=== PATIENT | male | born 1940 | race Caucasian/White ===

== ENCOUNTER 2018-01-25 05:48 | Day surgery (SDC) | payer OTHER, MEDICARE ==
[~2018-01-25] VITALS: Ht 182.9 cm; Wt 115.2 kg
[~2018-01-25 05:48] MED LIST: ALBU90OI; ALBU90OI61 INH; ASPI81CH; ASPI81CH PO; ATOR40TA PO; Amiodarone HCl200 MG PO; BUDE200IP; BUDE6HFA INH; CARV3.125 PO; CARV6.25 PO; CHOL10002 PO; CITA20 PO; CLOP75 PO; CYCL10 PO; DRON400T; FURO20 PO; FURO80 PO; IBUP800 PO; LEVSOD50 PO; LIDO700A20 TOP; LISI20 PO; LORA1 PO; MOME220I INH; NITR.6SL PO; OXYC5 PO; Oxycodone-Apap1 EAC3 PO; PANT40 PO; STIOLTO RESPIMAT4 GM INH; TRAZ150T57 PO; TRAZ50 PO; WARF2.5 PO; WARF5 PO
== END 2018-01-25 22:39 | disposition home or self-care (01) ==
LOC: ORSCMMR 05:48
PROVIDERS: Surgery
PROC: 0DBL8ZX Excision of Transverse Colon, Via Natural or Artificial Opening Endoscopic, Diagnostic (ICD-10-PCS; principal; 2018-01-25 07:30)
PROC: 0DBH8ZX Excision of Cecum, Via Natural or Artificial Opening Endoscopic, Diagnostic (ICD-10-PCS; principal; 2018-01-25 07:30)
DX: D64.9 Anemia, unspecified (principal); D12.0 Benign neoplasm of cecum; D12.3 Benign neoplasm of transverse colon; K64.8 Other hemorrhoids; K57.30 Diverticulosis of large intestine without perforation or abscess without bleeding; Z86.010 Personal history of colon polyps; I48.91 Unspecified atrial fibrillation; Z95.0 Presence of cardiac pacemaker; E78.00 Pure hypercholesterolemia, unspecified; I10 Essential (primary) hypertension; E03.9 Hypothyroidism, unspecified; J44.9 Chronic obstructive pulmonary disease, unspecified; G47.33 Obstructive sleep apnea (adult) (pediatric); Z79.01 Long term (current) use of anticoagulants; Z79.899 Other long term (current) drug therapy
CPT/HCPCS: 88305; J7120

== ENCOUNTER 2019-03-27 12:52 | Day surgery (SDC) | payer MEDICARE ==
[~2019-03-27] VITALS: Ht 177.8 cm; Wt 111.6 kg
== END 2019-03-27 15:39 | disposition home or self-care (01) ==
LOC: ORSCSDS 12:52
PROVIDERS: Surgery
PROC: 0DBK8ZX Excision of Ascending Colon, Via Natural or Artificial Opening Endoscopic, Diagnostic (ICD-10-PCS; principal; 2019-03-27 14:30)
DX: Z12.11 Encounter for screening for malignant neoplasm of colon (principal); D12.2 Benign neoplasm of ascending colon; Z86.010 Personal history of colon polyps; I48.91 Unspecified atrial fibrillation; I10 Essential (primary) hypertension; G47.33 Obstructive sleep apnea (adult) (pediatric); E66.9 Obesity, unspecified; Z87.891 Personal history of nicotine dependence; Z68.35 Body mass index [BMI] 35.0-35.9, adult; Z79.899 Other long term (current) drug therapy
CPT/HCPCS: 88305; J2704; J7120

== ENCOUNTER 2019-08-24 11:51 | Inpatient (IN) | payer MEDICARE ==
[~2019-08-24] VITALS: Ht 180.3 cm; Wt 104.1 kg
[~2019-08-24 11:51] MED LIST changes: -CARV3.125 PO; +Coreg12.5 MG PO; +Desyrel150 MG PO; +FURO40 PO; -FURO80 PO; +LEVSOD25 PO; -LEVSOD50 PO; -TRAZ150T57 PO; -WARF2.5 PO
[2019-08-24 13:00] LABS: BASOPHILS ABSOLUTE AUTO 0.03 K/mm3 (0.00-0.23); BASOPHILS PERCENT AUTO 1 % (0-2); EOSINOPHILS ABSOLUTE AUTO 0.06 K/mm3 (0.00-0.68); EOSINOPHILS PERCENT AUTO 1 % (0-6); Hematocrit 35.8 % (37.0-53.0); Hemoglobin 11.2 g/dL (13.5-17.5); IMMATURE GRAN ABSOLUTE AUTO 0.02 K/mm3 (0.00-0.10); IMMATURE GRAN PERCENT AUTO 0 % (0-1); LYMPHOCYTES ABSOLUTE AUTO 0.63 K/mm3 (0.84-5.20); LYMPHOCYTES PERCENT AUTO 12 % (21-46); MONOCYTES ABSOLUTE AUTO 0.64 K/mm3 (0.16-1.47); MONOCYTES PERCENT AUTO 12 % (4-13); Mean Corpuscular HGB 31.3 pg (26.0-34.0); Mean Corpuscular HGB Conc 31.3 g/dL (31.5-36.5); Mean Corpuscular Volume 100 fL (80-100); Mean Platelet Volume 9.5 fL (9.1-12.4); NEUTROPHILS PERCENT AUTO 74 % (41-73); Platelet Count 156 K/mm3 (150-400); RDW Coefficient Variation 12.7 % (11.7-14.2); RDW Standard Deviation 46.5 fL (35.1-46.3); Red Blood Cell Count 3.58 M/mm3 (4.30-5.90); White Blood Cell Count 5.28 K/mm3 (4.00-11.30)
[2019-08-24 13:12] LABS: Albumin, Blood 3.8 g/dL (3.4-5.0); Albumin/Globulin Ratio 1.3 (0.8-1.8); Bilirubin, Total 0.6 mg/dL (0.1-1.0); Bun/Creatinine Ratio 26.4 (12.0-20.0); Calcium, Blood 8.9 mg/dL (8.5-10.1); Creatinine, Blood 1.63 mg/dL (0.60-1.20); Globulin, Blood 2.9 g/dL (2.2-4.0); Potassium, Blood 4.5 mmol/L (3.5-5.5); Total Protein, Blood 6.7 g/dL (6.4-8.2)
[2019-08-24] MEDS ORDERED: Vitamin D2000 UNIT PO (15:23)
[2019-08-24] MEDS ORDERED: THERA1 EACH PO (15:24)
[2019-08-24] MEDS ORDERED: CLOP75 PO (15:25)
[2019-08-24] MEDS ORDERED: LORA1 PO (15:26)
[2019-08-24] MEDS ORDERED: CYCL10 PO (15:26)
[2019-08-24] MEDS ORDERED: Simvastatin40 MG PO (15:27)
[2019-08-24] MEDS ORDERED: GABA100 PO (15:33)
--- NOTE | 2019-08-24 18:08 | NUR ---
PT ARRIVED TO UNIT VIA GURNEY. EXTREMELY PAINFUL ON TRANSFER AND WHEN LAYING FLAT IN BED. RATES PAIN AT 8/10 UNRELIEVED BY FENTANYL GIVEN BEFORE TRANSFER. ICE GIVEN TO PATIENT. PATIENT RESTING IN BED IN LOW FOWLERS POSITION.
--- NOTE | 2019-08-24 18:34 | NUR ---
MEDICATED PER EMAR WITH DILAUDID. PATIENT STATES RELIEF. PATIENT IS CONTINENT OF BLADDER AND USED URINAL. PATIENT HAS CALL LIGHT IN REACH AND IS ABLE TO USE IT APPROPRIATLY.
--- NOTE | 2019-08-24 19:03 | NUR ---
HEPARIN DRIP STARTED PER EMAR, BOLUS GIVEN PER EMAR.
--- NOTE | 2019-08-24 19:29 | NUR ---
DR. KIRKPATRICK CALLED FOR PAIN MEDIATION ORDERS, DIET AND DALE ORDER. WILL PLACE DALE IF NEEDED, AT THIS POINT PT USING URINAL WELL. PT REPORTED FENTANYL DID NOT RELIEVE PAIN, CHANGED TO DILAUDID PER DR. KIRKPATRICK.
--- NOTE | 2019-08-24 22:30 | NUR ---
DR. ANDERSON IN TO SEE PATIENT
--- NOTE | 2019-08-24 22:30 | NUR ---
SPOKE WITH HOSPITALIST REGARDING WHEN TO DISCONTINUE HEPARIN GTT FOR PLANNED SURGERY TOMORROW MORNING. WAITING FOR ORDERS TO BE PUT IN FOR EXACT TIME.
--- NOTE | 2019-08-25 00:25 | NUR ---
CALL PLACED TO DR CHUNG REGARDING WHEN TO DISCONTINUE HEPARIN GTT FOR PLANNED SURGERY. ORDER TO DISCONTINUE AT THIS TIME.
[2019-08-25 02:26] LABS: Albumin, Blood 3.6 g/dL (3.4-5.0); Albumin/Globulin Ratio 1.2 (0.8-1.8); Bilirubin, Total 0.8 mg/dL (0.1-1.0); Calcium, Blood 8.9 mg/dL (8.5-10.1); Creatinine, Blood 1.71 mg/dL (0.60-1.20); Globulin, Blood 3.1 g/dL (2.2-4.0); Magnesium, Blood 1.8 mg/dL (1.6-2.4); Potassium, Blood 4.3 mmol/L (3.5-5.5); Total Protein, Blood 6.7 g/dL (6.4-8.2)
--- NOTE | 2019-08-25 09:29 | NUR ---
DR KIRKPATRICK HERE TO SEE PT. DISCUSSED MEDS/VS AND THAT PT REPORTS USUALLY HAVING LOW HR PER PT. DR KIRKPATRICK REPORTS TO GIVE COREG AND LISINOPRIL ORDERED.
--- NOTE | 2019-08-25 09:40 | NUR ---
MEDS GIVEN WITH SIP OF WATER PER DR KIRKPATRICK.
--- NOTE | 2019-08-25 11:58 | NUR ---
PT TO HAVE PROCEDURE IN OWN BED WITH OTHER STAFF. FAMILY PRESENT.
--- NOTE | 2019-08-25 12:50 | NUR ---
DAY SURGERY RN | DR. ARREAGA SAW PATIENT PATIENT HERE IN PACU FOR PRE-OP. DR. ARREAGA WROTE ORDERS FOR PATIENT. IV PATENT. O2 AT 4 L NC PER PATIENT BASELINE. PATIENT IS IN 8/10 PAIN, "MOSTLY IN BACK". VSS. A/O. AWAITING ANESTHESIA CONSULATION.
--- NOTE | 2019-08-25 15:41 | NUR ---
"DAY SURGERY RN | TO OR AT 1343 DR. GUTIERRES SAW PATIENT. NO ISSUES."
--- NOTE | 2019-08-25 17:00 | NUR ---
PT TO ROOM FROM SURGERY. AO, FAMILY AT BEDSIDE. VSS. REPORTS NO PAIN AT THIS TIME.
--- NOTE | 2019-08-25 17:34 | NUR ---
HEPARIN POST-SURGERY NOTE DR KIRKPATRICK REPORTED EARLIER TO CLARIFY WITH DR ARREAGA WHEN TO START HEPARIN POST-SURGERY. DR ARREAGA REPORTED MAY START HEPARIN TOMMORROW AT NOON. DR KIRKPATRICK NOTIFIED.
--- NOTE | 2019-08-25 19:05 | NUR ---
SHIFT SUMMARY PT HAD PROCEDURE TODAY. FAMILY BEEN IN AND OUT OF RM. PT BEEN ASSISTED WITH ADL'S. PT MED PER ORDERS W/O DIFFICULTY. REPORTS PAIN MUCH BETTER. DRESSINGS CDI. VSS. PT REPORTS LOW HR AT BASELINE. PT HAS BEEN CONFUSED AT TIMES SINCE SURGERY. BED ALARM IN PLACE. PT TOLERATING FLUIDS AND VOIDED POST-SURGERY.
[2019-08-26 05:46] LABS: Bun/Creatinine Ratio 30.1 (12.0-20.0); Calcium, Blood 8.7 mg/dL (8.5-10.1); Creatinine, Blood 1.66 mg/dL (0.60-1.20); Potassium, Blood 4.3 mmol/L (3.5-5.5)
--- NOTE | 2019-08-26 05:46 | NUR ---
SHIFT SUMMARY: PT POD #1 FOR LEFT HIP REPAIR. SURGICAL DRESSINGS CDI. NEW IV PLACED TO LEFT ARM PT PULLED PREVIOUS ONE. PT IMPULSIVE AND ATTEMPTING TO GET OUT OF BED AT TIMES. NEW MEPILEX PLACED ON SKIN TEAR ON RIGHT FOREARM. BED ALARM ON. VOIDING IN URINAL. OUT OF BED TO CHAIR AND BEDSIDE COMMODE WITH 2 MAX ASSIST AND FWW+GB.
[2019-08-26 05:53] LABS: BASOPHILS ABSOLUTE AUTO 0.01 K/mm3 (0.00-0.23); BASOPHILS PERCENT AUTO 0 % (0-2); EOSINOPHILS PERCENT AUTO 0 % (0-6); Hematocrit 28.7 % (37.0-53.0); Hemoglobin 9.1 g/dL (13.5-17.5); IMMATURE GRAN ABSOLUTE AUTO 0.05 K/mm3 (0.00-0.10); IMMATURE GRAN PERCENT AUTO 1 % (0-1); LYMPHOCYTES PERCENT AUTO 3 % (21-46); MONOCYTES ABSOLUTE AUTO 0.81 K/mm3 (0.16-1.47); MONOCYTES PERCENT AUTO 9 % (4-13); Mean Corpuscular HGB 31.1 pg (26.0-34.0); Mean Corpuscular HGB Conc 31.7 g/dL (31.5-36.5); Mean Corpuscular Volume 98 fL (80-100); Mean Platelet Volume 9.9 fL (9.1-12.4); NEUTROPHILS ABSOLUTE AUTO 7.96 K/mm3 (1.96-9.15); NEUTROPHILS PERCENT AUTO 87 % (41-73); Platelet Count 149 K/mm3 (150-400); RDW Coefficient Variation 12.8 % (11.7-14.2); Red Blood Cell Count 2.93 M/mm3 (4.30-5.90); White Blood Cell Count 9.13 K/mm3 (4.00-11.30)
--- NOTE | 2019-08-26 08:51 | NUR ---
DR KIRKPATRICK HERE RECENTLY TO SEE PT.
--- NOTE | 2019-08-26 08:52 | NUR ---
DR KIRKPATRICK REPORTED STARTED COUMADIN THIS EVENING, REPORTED DOES NOT NEED HEPARIN STARTED AT NOON.
--- NOTE | 2019-08-26 11:20 | NUR ---
DR ARREAGA BEEN TO SEE PT, REPORTS TO LEAVE CURRENT DRESSING IN PLACE AT THIS TIME.
--- NOTE | 2019-08-26 13:10 | NUR ---
PHARMACY CALLED RECENTLY TO CLARIFY HEPARIN, REPORTED THAT DR KIRKPATRICK REPORTED EARLIER TO NOT START AT NOON. PT SCHEDULED TO GET COUMADIN THIS EVENING.
--- NOTE | 2019-08-26 16:39 | NUR ---
SHIFT SUMMARY FAMILY HAS BEEN IN TO SEE PT TODAY. PAIN MANAGED WITH PAIN MEDS PER ORDER. PT HAS BEEN UP TO CHAIR TODAY AND IS TOLERATING FOOD AND FLUIDS. PT FORGETS LIMITATIONS AT TIMES. BED/TAB ALARM HAS BEEN USED TODAY. PT VOIDING. SURGICAL DRESSINGS CDI. NEEDS 2X ASSIST WITH WALKER FOR TRANSFER. BEEN ASSISTED WITH ADLS PRN.
[2019-08-27 05:43] LABS: International Normalized Ratio 0.95; Prothrombin Time Results 10.1 Sec (9.7-11.5)
--- NOTE | 2019-08-27 06:25 | NUR ---
SHIFT SUMMARY: PT A&O X4. IMPULSIVE AT TIMES. BED ALARM AND TAB ALARM ON FOR SAFETY. PAIN MANAGED WITH 10MG OXY PER EMAR. GIVEN IV PAIN MEDICATION ONCE. PT OUT OF BED TO BEDSIDE COMMODE WITH 2 ASSIST W/FWW+GB. PT'S MOBILITY APPEARS TO BE SLIGHTLY IMPROVING. ICE PACK PLACED TO LEFT HIP. PT APPEARS TO BE ANXIOUS HE HAS NOT HAD A BM. PT BEEN GETTING DAILY COLACE. WILL GIVE SENNAKOT PER EMAR. VOIDING WELL IN URINAL.
--- NOTE | 2019-08-27 14:23 | NUR ---
PAIN DR. KIRKPATRICK NOTIFIED THAT PT HAS STILL BEEN REQUIRING IV PAIN MEDICATION. CONTINUE WITH PLAN FOR DISCHARGE TO SNF. SCRIPTS FOR PAIN MEDICATION IN CHART.
[2019-08-27] MEDS ORDERED: ACET500 PO (15:02)
[2019-08-27] MEDS ORDERED: WARF7.5 PO (15:02)
[2019-08-27] MEDS ORDERED: DOCU100 PO (15:03)
[2019-08-27] MEDS ORDERED: Oxycodone HCl20 M1 PO (15:04)
--- NOTE | 2019-08-27 15:22 | NUR ---
REPORT GIVEN TO JUSTIN AT [facility]. PATIENT LEFT VIA WHEELCHAIR WITH TRANSPORT. BELONGINGS SENT WITH PATIENT. PRESCRIPTIONS IN DISCHARGE PACKET WITH PATIENT. PATIENT HAD BOWEL MOVEMENT TODAY AND HAS BEEN CONTINENT OF BLADDER. UP TO THE CHAIR WITH FWW AND GB THROUGHOUT SHIFT. COMPLAINTS OF 8/10 PAIN. NEEDED IV PAIN MEDICATIONS FOR BREAKTHROUGH PAIN. DRESSING SITES WERE CDI.
== END 2019-08-27 15:30 | DRG 481 ==
LOC: ER 11:51 → SURS 15:45
PROVIDERS: Emergency Medicine; ADMIT Hospitalist
PROC: 0QH706Z Insertion of Intramedullary Internal Fixation Device into Left Upper Femur, Open Approach (ICD-10-PCS; principal; 2019-08-24)
DX: S72.142A Displaced intertrochanteric fracture of left femur, initial encounter for closed fracture (principal); I50.22 Chronic systolic (congestive) heart failure; I13.0 Hypertensive heart and chronic kidney disease with heart failure and stage 1 through stage 4 chronic kidney disease, or unspecified chronic kidney disease; W19.XXXA Unspecified fall, initial encounter; I48.91 Unspecified atrial fibrillation; J44.9 Chronic obstructive pulmonary disease, unspecified; D64.9 Anemia, unspecified; N18.3 Chronic kidney disease, stage 3 (moderate); I25.10 Atherosclerotic heart disease of native coronary artery without angina pectoris; K21.9 Gastro-esophageal reflux disease without esophagitis; G47.33 Obstructive sleep apnea (adult) (pediatric); E66.9 Obesity, unspecified; Z68.32 Body mass index [BMI] 32.0-32.9, adult; Z95.1 Presence of aortocoronary bypass graft; Z79.01 Long term (current) use of anticoagulants; Z79.899 Other long term (current) drug therapy; Z95.5 Presence of coronary angioplasty implant and graft; Z87.891 Personal history of nicotine dependence; I25.2 Old myocardial infarction; Z95.0 Presence of cardiac pacemaker
CPT/HCPCS: 36415; 71045; 73502; 73552; 73700; 80048; 80053; 83735; 83880; 84484; 85025; 85610; 85730; 86850; 86900; 86901; 93005; 93010; 94762; 96361; 96374; 96375; 96376; 97110; 97162; 97165; 97530; 99285-25; A9270; C1713; C1769; J0171; J0690; J0735; J1100; J1170; J1644; J1885; J1940; J2060; J2370; J2405; J2704; J2795; J3010; J7030; J7120

== ENCOUNTER 2019-08-30 08:00 | Inpatient (IN) | payer MEDICARE ==
[~2019-08-30] VITALS: Ht 188 cm; Wt 110.3 kg
[~2019-08-30 08:00] MED LIST changes: +ACET500 PO; +DOCU100 PO; +GABA100 PO; +Oxycodone HCl20 M1 PO; +Simvastatin40 MG PO; +THERA1 EACH PO; +Vitamin D2000 UNIT PO; +WARF7.5 PO
[2019-08-30] MEDS ORDERED: GAVILAX17 GM PO (08:18)
[2019-08-30] MEDS ORDERED: BACL10 PO ×2 (08:22→14:35)
[2019-08-30] MEDS ORDERED: HYDHCL25 PO (08:23)
[2019-08-30] MEDS ORDERED: Zofran8 MG PO (08:24)
[2019-08-30] MEDS ORDERED: ROXICODONE5 MG PO ×2 (08:25→14:39)
[2019-08-30 08:37] LABS: BASOPHILS ABSOLUTE AUTO 0.01 K/mm3 (0.00-0.23); BASOPHILS PERCENT AUTO 0 % (0-2); EOSINOPHILS ABSOLUTE AUTO 0.03 K/mm3 (0.00-0.68); EOSINOPHILS PERCENT AUTO 1 % (0-6); Hemoglobin 8.2 g/dL (13.5-17.5); IMMATURE GRAN ABSOLUTE AUTO 0.04 K/mm3 (0.00-0.10); IMMATURE GRAN PERCENT AUTO 1 % (0-1); LYMPHOCYTES ABSOLUTE AUTO 0.21 K/mm3 (0.84-5.20); LYMPHOCYTES PERCENT AUTO 4 % (21-46); MONOCYTES ABSOLUTE AUTO 0.59 K/mm3 (0.16-1.47); MONOCYTES PERCENT AUTO 10 % (4-13); Mean Corpuscular HGB 31.2 pg (26.0-34.0); Mean Corpuscular HGB Conc 32.8 g/dL (31.5-36.5); Mean Corpuscular Volume 95 fL (80-100); Mean Platelet Volume 9.3 fL (9.1-12.4); NEUTROPHILS ABSOLUTE AUTO 5.04 K/mm3 (1.96-9.15); NEUTROPHILS PERCENT AUTO 85 % (41-73); Platelet Count 225 K/mm3 (150-400); RDW Coefficient Variation 13.1 % (11.7-14.2); RDW Standard Deviation 44.7 fL (35.1-46.3); Red Blood Cell Count 2.63 M/mm3 (4.30-5.90); White Blood Cell Count 5.92 K/mm3 (4.00-11.30)
[2019-08-30 08:39] LABS: Source, Urine Catheter
[2019-08-30 08:42] LABS: International Normalized Ratio 1.88; Prothrombin Time Results 18.8 Sec (9.7-11.5)
[2019-08-30 08:50] LABS: Appearance, Urine Clear (Clear); Bilirubin, Urine Neg (Neg); Blood, Urine Neg (Neg); Color, Urine Yellow (P-Yellow); Glucose Qualitative, Urine Neg (Neg); Ketones, Urine Neg (Neg); Leukocyte Esterase, Urine Neg (Neg); Nitrite, Urine Neg (Neg); Protein, Urine Neg (Neg); Specific Gravity, Urine 1.015 (1.003-1.022); Urobilinogen, Urine NORM (Normal)
[2019-08-30 08:52] LABS: Albumin, Blood 3.1 g/dL (3.4-5.0); Albumin/Globulin Ratio 0.9 (0.8-1.8); Bilirubin, Total 0.9 mg/dL (0.1-1.0); Bun/Creatinine Ratio 39.3 (12.0-20.0); Calcium, Blood 8.8 mg/dL (8.5-10.1); Creatinine, Blood 2.29 mg/dL (0.60-1.20); Globulin, Blood 3.4 g/dL (2.2-4.0); Potassium, Blood 3.7 mmol/L (3.5-5.5); Total Protein, Blood 6.5 g/dL (6.4-8.2); Troponin I 0.054 ng/mL (0.000-0.040)
[2019-08-30] MEDS ORDERED: Oyster Shell C500 MG PO (12:02)
[2019-08-30] MEDS ORDERED: METO5 PO (12:08)
[2019-08-30] MEDS ORDERED: LIDO700A20 TOP (12:08)
[2019-08-30] MEDS ORDERED: ASMANEX220 MC3 INH (12:09)
[2019-08-30] MEDS ORDERED: STIOLTO RESPIMAT4 GM INH (12:10)
[2019-08-30] MEDS ORDERED: Percocet 5-3251 EACH PO (12:10)
[2019-08-30] MEDS ORDERED: POTCHL20ER PO (12:11)
[2019-08-30 12:53] LABS: Uric Acid, Blood 14.4 mg/dL (3.5-7.2)
[2019-08-30 12:55] LABS: Phosphorus, Blood 4.7 mg/dL (2.5-4.9)
[2019-08-30 13:14] LABS: Creatine Kinase MB 15.4 ng/mL (0.0-3.6); Creatine Kinase MB Index 1.3 (0.0-4.0)
[2019-08-30] MEDS ORDERED: CLOP75 PO (14:26)
[2019-08-30] MEDS ORDERED: MIRALAX17 GM PO (14:27)
[2019-08-30] MEDS ORDERED: Simvastatin40 MG PO (14:28)
[2019-08-30] MEDS ORDERED: Hair, Skin & N1 EACH PO (14:29)
[2019-08-30] MEDS ORDERED: DOCU100 PO (14:31)
[2019-08-30] MEDS ORDERED: Oxycodone HCl20 M1 PO (14:32)
[2019-08-30] MEDS ORDERED: ACET500 PO (14:33)
[2019-08-30] MEDS ORDERED: ACET325 PO (14:35)
[2019-08-30] MEDS ORDERED: BISA10S PR (14:37)
[2019-08-30] MEDS ORDERED: Atarax10 MG PO (14:37)
[2019-08-30] MEDS ORDERED: Fleet Enema132 ML PR (14:37)
[2019-08-30] MEDS ORDERED: Milk Of Ma400 MG/5 M PO (14:38)
[2019-08-30] MEDS ORDERED: ONDA4ODT PO (14:39)
[2019-08-30 15:26] LABS: U Amphetamine Screen Not Detected; U Barbituate Screen Not Detected; U Benzodiazapine Screen Not Detected; U Buprenorphine Screen Not Detected; U Cannabinoids Screen Not Detected; U Cocaine Screen Not Detected; U Methadone Screen Not Detected; U Methamphetamine Screen Not Detected; U Opiates Screen Not Detected; U Oxycodone Screen DETECTED; U Phencyclidine Screen Not Detected; U Propoxyphene Screen Not Detected
--- NOTE | 2019-08-30 16:33 | NUR ---
ADMIT- PT ARRIVED TO ROOM 327 VIA DAI FROM ED AT 1405, PT A 4 PERSON SLIDE INTO BED. PT AWAKES TO PAINFUL STIMULI AT THAT TIME BUT COULD NOT HOLD A CONVERSATION AND QUICKLY FALLS BACK TO SLEEP. PT LS CLEAR, ON 2L N/C AT THAT TIME SATTING 100%. TELE VENTRICULAR PACED AT 87 PER REGISTRATION COORDINATOR. ASHA HOSE IN PLACE, NO EDEMA NOTED. DRESSING TO LEFT HIP AND THIGH NOTED C/D/I. 24G TO RIGHT THUMB WITH NS AT 75ML/HR STARTED. DAUGHTER AT BEDSIDE, BED ALARM PLACED AND CALL LIGHT IN REACH.
--- NOTE | 2019-08-30 16:35 | NUR ---
HOME CARE ASSISTANT CALLED AND REPORTED PT PACER IS PACING WHEN IT SHOULDNT BE, MID BEAT AND APPEARS TO HAVE PVC'S. CALLED AND SPOKE WITH DR KIRKPATRICK AT THAT TIME WHO ORDERED PACER INTERROGATION, [facility] NOTIFIED. TROPONIN BUMPED TO 0.[address] KIRKPATRICK WE WILL REDRAW. DR KIRKPATRICK NOTIFIED WELL THAT PT IS BECOMING MORE UNRESONSIVE AND ANOTHER DOSE OF NARCAN WAS INITITATED. DR KIRKPATRICK CAME UP TO SEE PT AT THAT TIME AFTER NARCAN, PT DID AWAKE AND WOULD ANSWER SIMPLE QUESTIONS FOR APROX 5 MIN THEN BEGAN LYING AWAKE WITH EYES OPEN BUT NOT ANSWERING QUESTIONS. 500ML BOLUS GIVEN PER DR KIRKPATRICK AND THEN 120ML/HR AFTER. BLADDER SCAN OF 582 POST VOID SO DALE PLACED PER DR KIRKPATRICK. SATS REMAIN 90-94% ON 2L. RESP 22. BP STABLE. DR KIRKPATRICK REPORTS HE WILL COME BACK SHORTLY TO COME RE-EVALUATE PT FOR HIGH LEVEL OF CARE. AT THIS TIME ALL NARCOTICS ARE BEING HELD.
[2019-08-30 16:36] LABS: Source, Urine Catheter
[2019-08-30 16:46] LABS: Appearance, Urine Clear (Clear); Bilirubin, Urine Neg (Neg); Blood, Urine Neg (Neg); Color, Urine Yellow (P-Yellow); Glucose Qualitative, Urine Neg (Neg); Ketones, Urine Neg (Neg); Leukocyte Esterase, Urine Neg (Neg); Nitrite, Urine Neg (Neg); Protein, Urine Neg (Neg); Specific Gravity, Urine 1.015 (1.003-1.022); Urobilinogen, Urine NORM (Normal)
[2019-08-30 17:12] LABS: PCO2 Arterial 36.5 mmHg (35-45); PO2 Arterial 102 mmHg (80-100); pH Blood Arterial 7.42 (7.35-7.45)
--- NOTE | 2019-08-30 17:37 | NUR ---
ICU TRANSFER PT ARRIVES TO ICU 5 AT 1717 FROM [facility] FOR OBTUNDATION AND ARRHYTHMIA. ACCOMPANIED BY [facility] FLOOR RN PAMELLA AND JOSE. PT AWAKE AND ALERT, ABLE TO STATE NAME AND BIRTHDATE, STATES HE IS "ON THE SECOND FLOOR" WHEN ASKED WHERE HE IS, UNABLE TO STATE WHY HE IS IN THE HOSPITAL OR THE DATE TODAY. PT TRANSFERRED TO ICU BED VIA SLIDER SHEET. PLACED ON MONITOR WHICH SHOWS DUAL PACED RHYTHM. BP STABLE. SPO2 98% ON 2L/MIN O2 VIA NC. PT HAS 24G IV R THUMB AREA WITH 500ML NS BOLUS FINISHING UP ON ARRIVAL. SECOND IV PLACED TO R UPPER ARM. NS INFUSING AT 120ML/HR PER ORDERS. DALE CATH IN PLACE DRAINING YELLOW URINE TO GRAVITY. HC STAFF HERE TO INTERROGATE PACER. WILL CONTINUE TO MONITOR PT CLOSELY.
--- NOTE | 2019-08-30 17:39 | NUR ---
DR KIRKPATRICK AT BEDSIDE TO REEVALUATE PT, PER DR KIRKPATRICK TRANSFER PT TO ICU. ABG COMPLETED. REPORT TO ICU 5 RN AND TRANSFERED. DAUGHTER JORGE CALLED AND NOTIFIED.
--- NOTE | 2019-08-30 17:55 | NUR ---
RECEIVED REPORT FROM FLORIDA HUDSON RN, ASSUMED CARE, PATIENT IS LYING IN BED, AWAKE AND ALERT BUT SOMEWHAT CONFUSED TO WHY HE IS IN THE HOSPITAL, KNOWS HIS NAME AND BIRTHDATE, TECH IN TO INTERROGATE DUAL CHAMBER PPM, CALL LIGHT IN REACH, WILL CONTINUE TO MONITOR.
--- NOTE | 2019-08-30 20:01 | NUR ---
ASSUMED CARE BEDSIDE REPORT RECIEVED. PT IS LAYING IN BED RESTING QUIETLY. PT AWAKENS EASILY TO VERBAL COMMANDS. PT IS DROWSEY AND FALLS BACK ASLEEP QUICKLY. PT PAINFUL WITH MOVEMENT OR REPOSITIONING. PT WITH ROWENA AND DRESSINGS TO LEFT HIP C/D/I, S/P FEMUR FX REPAIR. PT ON 2L O2 NC. VITAL SIGNS STABLE. PT WITH PACER SET AT 70 PER WEBSITE DESIGNER. MONITOR SHOWING HR 40'S WITH PACER SPIKES ON SOME QRS COMPLEX'S. HR AUSCULTATED AT 70 BPM. NS INFUSING AT 120 ML/HR. DALE IN PLACE WITH CLEAR YELLOW URINE OUTPUT NOTED. PT SPOUSE CALLED AND UPDATED TO PT TRANSFER TO ICU AND CURRENT CONDITION. WILL CONTINUE TO MONITOR.
[2019-08-31 03:45] LABS: BASOPHILS PERCENT AUTO 0 % (0-2); EOSINOPHILS ABSOLUTE AUTO 0.01 K/mm3 (0.00-0.68); EOSINOPHILS PERCENT AUTO 0 % (0-6); Hematocrit 22.5 % (37.0-53.0); Hemoglobin 7.3 g/dL (13.5-17.5); IMMATURE GRAN ABSOLUTE AUTO 0.04 K/mm3 (0.00-0.10); IMMATURE GRAN PERCENT AUTO 1 % (0-1); LYMPHOCYTES ABSOLUTE AUTO 0.28 K/mm3 (0.84-5.20); LYMPHOCYTES PERCENT AUTO 5 % (21-46); MONOCYTES ABSOLUTE AUTO 0.71 K/mm3 (0.16-1.47); MONOCYTES PERCENT AUTO 11 % (4-13); Mean Corpuscular HGB 31.3 pg (26.0-34.0); Mean Corpuscular HGB Conc 32.4 g/dL (31.5-36.5); Mean Corpuscular Volume 97 fL (80-100); Mean Platelet Volume 8.7 fL (9.1-12.4); NEUTROPHILS ABSOLUTE AUTO 5.24 K/mm3 (1.96-9.15); NEUTROPHILS PERCENT AUTO 83 % (41-73); Platelet Count 200 K/mm3 (150-400); RDW Coefficient Variation 13.2 % (11.7-14.2); RDW Standard Deviation 45.9 fL (35.1-46.3); Red Blood Cell Count 2.33 M/mm3 (4.30-5.90); White Blood Cell Count 6.28 K/mm3 (4.00-11.30)
[2019-08-31 04:00] LABS: International Normalized Ratio 2.57
[2019-08-31 04:03] LABS: Albumin, Blood 2.7 g/dL (3.4-5.0); Albumin/Globulin Ratio 0.8 (0.8-1.8); Bilirubin, Total 0.9 mg/dL (0.1-1.0); Bun/Creatinine Ratio 46.3 (12.0-20.0); Calcium, Blood 8.6 mg/dL (8.5-10.1); Creatinine, Blood 1.62 mg/dL (0.60-1.20); Globulin, Blood 3.2 g/dL (2.2-4.0); Potassium, Blood 3.4 mmol/L (3.5-5.5); Total Protein, Blood 5.9 g/dL (6.4-8.2)
--- NOTE | 2019-08-31 05:49 | NUR ---
SHIFT SUMMARY PT HAS REMAINED AWAKE THROUGHOUT MOST OF THE NIGHT. PT QUIET AT TIMES, AND MOANS OUT AT TIMES. PT MORE CONFUSED THE NIGHT PROGRESSED. VITAL SIGNS HAVE REMAINED STABLE. PT ON 2L O2 NC. NS INFUSING AT 120 ML/HR. DALE IN PLACE WITH DARK YELLOW URINE OUTPUT NOTED. DRESSINGS TO LEFT HIP/LEG REMAIN C/D/I. WILL CONTINUE TO MONITOR AND REPORT OFF TO ONCOMING RN.
--- NOTE | 2019-08-31 06:55 | NUR ---
REPORT AND BEDSIDE ROUNDING WITH OLIVIA OCONNELL. ASSUMED PT CARE. PT BUILDER OPERATOR LIGHT OFTEN. ALERT TO SELF. EASILY REDIRECTED.
--- NOTE | 2019-08-31 07:46 | NUR ---
PT MEDICATED WITH TYLENOL, COREG AND ZOFRAN PER EMAR. PILLS IN APPLESAUCE. PT ALEA WELL.
--- NOTE | 2019-08-31 08:15 | NUR ---
PT TUNRNED TO RIGHT HIP, PILLOW PLACED UNDER HIP. CALL LIGHT IN REACH.
--- NOTE | 2019-08-31 08:22 | NUR ---
PT MEDICATED WITH PLAVIX, APPLESAUCE USED. PT ALEA WELL. LIDOCAINE PATCH PLACED TO LEFT SIDE FOR POSS PAIN MANAGEMENT.
--- NOTE | 2019-08-31 08:41 | NUR ---
ROOM ASSIGNMENT RECEIVED. 327.
--- NOTE | 2019-08-31 09:05 | NUR ---
PT PLACED ON BED CARTER.
--- NOTE | 2019-08-31 09:27 | NUR ---
REPORT TO KITTY OCONNELL ON MEDICAL.
--- NOTE | 2019-08-31 13:38 | NUR ---
called dr ponce- PT STILL C/O PAIN IN THE LEFT HIP. PT STATED TYLENOL AND TRAMADOL DID NOTHING FOR THE PAIN. RECIEVED ORDER FOR IV FENTANYL
--- NOTE | 2019-08-31 14:48 | NUR ---
SPOKE TO DR KIRKPATRICK- PT HAS NO WEIGHT BEARING ORDERS. RECIEVED A VERBAL ORDER FOR WEIGHT BEARING TOLLERATED.
--- NOTE | 2019-08-31 17:17 | NUR ---
SHIFT SUMMARY- PT ALERT AND ORIENTED AND CALLS APPROPRIATELY; HOWEVER PT IMMIDIATELY BEGINS TO YELL OUT LOUDLY AFTER HE PRESSES HIS CALL LIGHT. PT HAS LEFT HIP PAIN WHERE HE HAS HAD A RECENT LEFT FEMUR PINNING DONE. NEW ORDER IN FOR IV FENTANYL, 12.5 MCG SEEMS TO BE SUFFICIENT FOR THIS PT TO MANAGE HIS PAIN. PLAN IS FOR PT RENAL FUNCTION TO CONTINUE TO IMPROVE AND DC BACK TO [facility] TOMORROW. FAMILY IS AWARE THAT THIS IS THE PLAN. PT HAS WEIGHT BEARING TOLLERATED ORDERS FOR THE LLE. PHYSICAL THERAPY SAW THE PT TODAY.
[2019-09-01 05:07] LABS: BASOPHILS ABSOLUTE AUTO 0.01 K/mm3 (0.00-0.23); BASOPHILS PERCENT AUTO 0 % (0-2); EOSINOPHILS ABSOLUTE AUTO 0.03 K/mm3 (0.00-0.68); EOSINOPHILS PERCENT AUTO 0 % (0-6); Hematocrit 24.5 % (37.0-53.0); Hemoglobin 7.8 g/dL (13.5-17.5); IMMATURE GRAN ABSOLUTE AUTO 0.13 K/mm3 (0.00-0.10); IMMATURE GRAN PERCENT AUTO 2 % (0-1); LYMPHOCYTES ABSOLUTE AUTO 0.42 K/mm3 (0.84-5.20); LYMPHOCYTES PERCENT AUTO 5 % (21-46); MONOCYTES ABSOLUTE AUTO 1.02 K/mm3 (0.16-1.47); MONOCYTES PERCENT AUTO 12 % (4-13); Mean Corpuscular HGB 31.3 pg (26.0-34.0); Mean Corpuscular HGB Conc 31.8 g/dL (31.5-36.5); Mean Corpuscular Volume 98 fL (80-100); NEUTROPHILS ABSOLUTE AUTO 6.77 K/mm3 (1.96-9.15); NEUTROPHILS PERCENT AUTO 81 % (41-73); Platelet Count 223 K/mm3 (150-400); RDW Coefficient Variation 13.4 % (11.7-14.2); Red Blood Cell Count 2.49 M/mm3 (4.30-5.90); White Blood Cell Count 8.38 K/mm3 (4.00-11.30)
[2019-09-01 05:20] LABS: International Normalized Ratio 2.4; Prothrombin Time Results 23.5 Sec (9.7-11.5)
[2019-09-01 05:30] LABS: Anion Gap 7 mmol/L (6-16); Blood Urea Nitrogen 60 mg/dL (8-24); CO2, Blood 27 mmol/L (21-32); Calcium, Blood 9.2 mg/dL (8.5-10.1); Chloride, Blood 102 mmol/L (98-108); Glomerular Filtration Rate >60 (60-); Glucose, Blood 113 mg/dL (70-99); Potassium, Blood 3.6 mmol/L (3.5-5.5); Sodium, Blood 136 mmol/L (136-145)
--- NOTE | 2019-09-01 06:01 | NUR ---
SHIFT SUMMARY: MARIO HAS A ROUGH NIGHT, HAS NOT SLEPT A MINUTE. HE HAS BEEN UP WATCHING TV. COMPLAINTS OF PAIN EVERY 3 HOURS, WITH FENTANYL 25MCQ GIVEN TO RELEIVE THE PAIN, TYELNOL HAS BEEN GIVEN TO HELP. THIS GOT CAUGHT UP UNTIL HE STARTED TO HAVE VERY LOOSE BROWN BM'S. HE HAD SEVERAL THIS MORNING, CONSTANTLY NEEDING A BED PAIN, EVENTUALLY WITH ASSISTANCE GETTING UP TO THE BSC. CALL LIGHT HAS BEEN IN REACH AND USED APPROPRIATLY. WILL REPORT TO DAY SHIFT RN.
[2019-09-01 12:14] LABS: Adenovirus F 40/41 Not Detected (NOT DETECT); Astrovirus Not Detected (NOT DETECT); Campylobacter Sp Not Detected (NOT DETECT); Cryptosporidium Not Detected (NOT DETECT); Cyclospora Cayetanensis Not Detected (NOT DETECT); E. Coli O157 Not Detected (NOT DETECT); Entamoeba Histolytica Not Detected (NOT DETECT); Enteroaggregative E. coli-EAEC Not Detected (NOT DETECT); Enteropathogenic E. coli-EPEC Not Detected (NOT DETECT); Enterotoxigenic E. coli-ETEC Not Detected (NOT DETECT); Giardia Lamblia Not Detected (NOT DETECT); Norovirus GI/GII Not Detected (NOT DETECT); Plesiomonas Shigelloides Not Detected (NOT DETECT); Rotavirus A Not Detected (NOT DETECT); Salmonella Sp Not Detected (NOT DETECT); Sapovirus Not Detected (NOT DETECT); Shiga Toxin-prod E. coli-STEC Not Detected (NOT DETECT); Shigella/Enteroin E. coli-EIEC Not Detected (NOT DETECT); Vibrio Cholerae Not Detected (NOT DETECT); Vibrio Sp Not Detected (NOT DETECT); Yersinia Enterocolitica Not Detected (NOT DETECT)
[2019-09-01] MEDS ORDERED: LIDOCAINE PAIN1 EACH TOP (12:22)
[2019-09-01] MEDS ORDERED: ASMANEX HFA13 GM INH (12:23)
--- NOTE | 2019-09-01 18:31 | NUR ---
SHIFT SUMMARY- PT ALERT AND ORIENTED, FORGETFUL. PT HAS CONFUSION THAT IS WORSE THAN IT SEEMS ON INITIAL ASSESSMENT. PT C/O PAIN EVERY TIME STAFF ENTER THE ROOM. PT PRESSES THE CALL BUTTON FREQUENTLY SOMETIMES IMMEDIATELY AFTER THE STAFF HAVE JUST LEFT THE ROOM. PT APPEARS PAINFUL SOMETIMES BUT OTHER TIMES IT SEEMS HE DOES NOT REMEMBER GETTING PAIN MEDICINE AND IS REQUESTING IT OUT OF FEAR THAT THE PAIN WILL GET BAD. PT HAS AN ORDER FOR NO IV ACCESS. HAD A POSSITIVE STOOL SAMPLE FOR C-DIFF. PLANS TO DC THE PT ON TUESDAY AFTER THE REFLEX TEST COMES BACK. PT HAS BEEN INSTRUCTED ON THE IMPORTANCE OF LIMITING HIS PAIN MEDICATION, BECAUSE THE PT CAME IN OVER MEDICATED DR IS LIMITED ON THE MEDS PT CAN RECIEVE. PT CURRENTLY IN BED WITH THE CALL LIGHT IN REACH, FAMILY IS AT THE BEDSIDE.
[2019-09-02 05:19] LABS: International Normalized Ratio 3.77; Prothrombin Time Results 35.4 Sec (9.7-11.5)
--- NOTE | 2019-09-02 05:47 | NUR ---
SHIFT SUMMARY NO ASSESSMENT CHANGES. 1-2 ASSIST TO BSC. DRESSINGS FROM L FEMUR PINNING ARE C/D/I. PT ON 3L O2 VIA NC OVERNIGHT. NO IV ACCESS. PAIN USUALLY RATED 8/10. PRN TYLENOL GIVEN. PLAN TO DC TUESDAY TO [place].
[2019-09-02 11:23] LABS: Hematocrit 24.5 % (37.0-53.0); Hemoglobin 7.7 g/dL (13.5-17.5); Mean Corpuscular HGB 30.8 pg (26.0-34.0); Mean Corpuscular HGB Conc 31.4 g/dL (31.5-36.5); Mean Corpuscular Volume 98 fL (80-100); Mean Platelet Volume 9.3 fL (9.1-12.4); Platelet Count 347 K/mm3 (150-400); RDW Coefficient Variation 13.7 % (11.7-14.2); RDW Standard Deviation 48.1 fL (35.1-46.3); White Blood Cell Count 11.11 K/mm3 (4.00-11.30)
--- NOTE | 2019-09-02 16:17 | NUR ---
PATIENT CONTINUES TO HAVE DARK, OIL LOOKING BMS. SAMPLE SENT TO LAB. PATIENT CONTINUES TO REQUEST PAIN MEDS EVERY HOUR REGARDLESS OF WHEN GIVEN. HE SHOWS NO OUTWARD APPEARANCE OF DISTRESS. MEDICATED PER EMAR. PATIENT USES BEDPAN HE IS TOO WEAK TO USE BEDSIDE COMMODE. FAMILY PRESENT DURING SHIFT. PATIENT USES CALL LIGHT QUITE FREQUENTLY.
[2019-09-02 19:41] LABS: Stool Occult Blood Guaiac 1 Pos (Neg)
--- NOTE | 2019-09-03 00:43 | NUR ---
PURULENT DRAINAGE FROM L HIP SURG SITE. HAS NOT DONE FIRST DRESSING CHANGE YET. THIS RN REINFORCED EXTRA DRESSING WITH ABD PADS AND MEDIPORE TAPE. HOSP AWARE. WILL CONT TO MONITOR.
[2019-09-03 05:05] LABS: Hematocrit 21.4 % (37.0-53.0); Hemoglobin 6.8 g/dL (13.5-17.5); Mean Corpuscular HGB 30.5 pg (26.0-34.0); Mean Corpuscular HGB Conc 31.8 g/dL (31.5-36.5); Mean Corpuscular Volume 96 fL (80-100); Mean Platelet Volume 8.8 fL (9.1-12.4); NRBC ABSOLUTE 0.04 K/mm3 (0.00-0.02); NRBC Auto 0.4 /100 WBC (0.0-0.2); Platelet Count 308 K/mm3 (150-400); RDW Coefficient Variation 14.1 % (11.7-14.2); RDW Standard Deviation 47.8 fL (35.1-46.3); Red Blood Cell Count 2.23 M/mm3 (4.30-5.90); White Blood Cell Count 10.62 K/mm3 (4.00-11.30)
[2019-09-03 05:26] LABS: Prothrombin Time Results 48.1 Sec (9.7-11.5)
[2019-09-03 05:29] LABS: Anion Gap 8 mmol/L (6-16); Blood Urea Nitrogen 68 mg/dL (8-24); CO2, Blood 27 mmol/L (21-32); Chloride, Blood 103 mmol/L (98-108); Creatinine, Blood 1.03 mg/dL (0.60-1.20); Glomerular Filtration Rate >60 (60-); Glucose, Blood 112 mg/dL (70-99); Potassium, Blood 3.1 mmol/L (3.5-5.5); Sodium, Blood 138 mmol/L (136-145)
[2019-09-03 05:35] LABS: BAND PERCENT MAN 1 % (0-8); BASOPHILS PERCENT MAN 0 % (0-2); EOSINOPHILS PERCENT MAN 1 % (0-6); International Normalized Ratio 5.28; LYMPHOCYTES ABSOLUTE MAN 0.53 K/mm3 (0.84-5.20); LYMPHOCYTES PERCENT MAN 5 % (21-46); METAMYELOCYTE ABSOLUTE MAN 0.21 K/mm3 (0.00-0.00); METAMYELOCYTE PERCENT MAN 2 % (0-0); MONOCYTES ABSOLUTE MAN 0.74 K/mm3 (0.16-1.47); MONOCYTES PERCENT MAN 7 % (4-13); NEUTROPHILS ABSOLUTE MAN 9.02 K/mm3 (1.96-9.15); SEG NEUTROPHILS PERCENT MAN 84 % (41-73); TOTAL CELLS COUNTED 100
--- NOTE | 2019-09-03 06:48 | NUR ---
SHIFT SUMMARY NO ACUTE CHANGES OVERNIGHT. L HIP SITE IS LEAKING SMALL AMOUNT OF PURULENT DRAINAGE, FIRST DRESSING CHANGE HAS NOT BEEN DONE BY DR ARREAGA YET. TO BE DONE LATER THIS WEEK. REINFORCED DRESSING WITH ABD PADS AND MEDIPORE. PT TREATED FOR PAIN TWICE WITH 5MG PO OXYCODONE AND TWICE WITH TYLENOL. PROVIDES RELIEF. A&OX4. 2 PER MAX ASSIST, USING BED CARTER AND URINAL IN BED. CRIT HIGH INR THIS AM OF 5.28; CALL PLACED TO PHARMACY AND DR ISIDRO; TO HOLD WARFARIN. NO OTHER CHANGES TO REPORT. WILL CONT TO MONITOR AND PROVIDE CARE UNTIL PRESUMED BY ONCOMING RN.
--- NOTE | 2019-09-03 15:18 | NUR ---
Attempted to see pt today. Stepped into room. Pt sound asleep. Did not wake to verbal stimuli. Case conferenced earlier with and traffic manager re: new issues on this admission. Pt was here last week for surgical repair of fx l femur. Currently has had melana stools and also positive for c-diff, both being worked up and treated. Will attempt visit again tomorrow. No d/c timeframe known at this time.
--- NOTE | 2019-09-03 17:01 | NUR ---
SUMMARY PT IS A/O X2-3, HE APPEARS WEAK/FATIGUED, AFFECT SOMEWHAT FLAT/DEPRESSED. HE STATE CONTINUING L HIP/LEG PAIN, HAVE GIVEN OXYCODONE/ORDER FOR RELIEF/CONTROL. HE IS UP TO CHAIR/BSC 1 ASSIST, WT BRG ALEA LLE. HE PARTICIPATED W PHY THER TODAY. DR Oleg ARREAGA (ORTHO) IN TODAY TO ASSESS LHIP FX SURG SITE, ROWENA INTACT, NO S/S INFECTION, WOUND CARE/DRSG CHANGE PROVIDED. H&H LOW, 6.8/21.4, LAST GUIAC +, DR KIRKPATRICK ORDER 1 UNIT PRBC & GI CONSULT W DR HANKINS. INR HIGH @ 5.3, PLAVIX HELD, DR HANKINS ORDER 1 UNIT FFP. VIT K GIVEN. PT PLACED ON CL DIET FOR NOW. HE STATE POOR APPETITE, CL ENSURE ORDERED W TRAYS. HR IRREG, HX AFIB, PACEMAKER LCW. O2 @ 3L HOME DOSE, BIOX 100%, PT @ X'S TAKES O2 OFF. VSS.
[2019-09-03 18:34] LABS: Hematocrit 23.9 % (37.0-53.0); Hemoglobin 7.8 g/dL (13.5-17.5); Mean Corpuscular HGB 31.8 pg (26.0-34.0); Mean Corpuscular HGB Conc 32.6 g/dL (31.5-36.5); Mean Corpuscular Volume 98 fL (80-100); Mean Platelet Volume 8.6 fL (9.1-12.4); NRBC ABSOLUTE 0.09 K/mm3 (0.00-0.02); NRBC Auto 0.8 /100 WBC (0.0-0.2); Platelet Count 291 K/mm3 (150-400); RDW Coefficient Variation 14.4 % (11.7-14.2); RDW Standard Deviation 49.6 fL (35.1-46.3); Red Blood Cell Count 2.45 M/mm3 (4.30-5.90); White Blood Cell Count 11.45 K/mm3 (4.00-11.30)
[2019-09-04 05:31] LABS: Hematocrit 22.2 % (37.0-53.0); Hemoglobin 7.2 g/dL (13.5-17.5); Mean Corpuscular HGB 31.2 pg (26.0-34.0); Mean Corpuscular HGB Conc 32.4 g/dL (31.5-36.5); Mean Corpuscular Volume 96 fL (80-100); Platelet Count 280 K/mm3 (150-400); RDW Standard Deviation 50.3 fL (35.1-46.3); Red Blood Cell Count 2.31 M/mm3 (4.30-5.90); White Blood Cell Count 9.97 K/mm3 (4.00-11.30)
--- NOTE | 2019-09-04 05:41 | NUR ---
SHIFT SUMMARY NO ACUTE CHANGES TONIGHT. PT FINISHED UP UNIT OF PLATELETS AT START OF SHIFT. VSS, NO SIGNS OF ADVERSE REACTIONS. PT WENT DOWN FOR XRAY OF LLE SHORTLY AFTER. MEDICATED FOR PAIN WITH 5MG OXYCODONE Q4H AND 650 MG TYLENOL Q6H. PROVIDES SOME RELIEF. PT ON 3L VIA NC T/O NIGHT. DRESSING TO LLE IS C/D/I. WILL CONT TO MONITOR AND PROVIDE CARE UNTIL PRESUMED BY ONCOMING RN.
[2019-09-04 05:48] LABS: International Normalized Ratio 1.65; Prothrombin Time Results 16.7 Sec (9.7-11.5)
[2019-09-04 05:52] LABS: Anion Gap 5 mmol/L (6-16); Blood Urea Nitrogen 59 mg/dL (8-24); Bun/Creatinine Ratio 49.6 (12.0-20.0); CO2, Blood 28 mmol/L (21-32); Chloride, Blood 103 mmol/L (98-108); Creatinine, Blood 1.19 mg/dL (0.60-1.20); Glomerular Filtration Rate >60 (60-); Glucose, Blood 100 mg/dL (70-99); Potassium, Blood 3.1 mmol/L (3.5-5.5); Sodium, Blood 136 mmol/L (136-145)
[2019-09-04 06:07] LABS: BAND PERCENT MAN 2 % (0-8); BASOPHILS PERCENT MAN 0 % (0-2); EOSINOPHILS ABSOLUTE MAN 0.19 K/mm3 (0.00-0.68); EOSINOPHILS PERCENT MAN 2 % (0-6); LYMPHOCYTES ABSOLUTE MAN 0.79 K/mm3 (0.84-5.20); LYMPHOCYTES PERCENT MAN 8 % (21-46); METAMYELOCYTE ABSOLUTE MAN 0.39 K/mm3 (0.00-0.00); METAMYELOCYTE PERCENT MAN 4 % (0-0); MONOCYTES ABSOLUTE MAN 0.89 K/mm3 (0.16-1.47); MONOCYTES PERCENT MAN 9 % (4-13); MYELOCYTE ABSOLUTE MAN 0.19 K/mm3 (0.00-0.00); MYELOCYTE PERCENT MAN 2 % (0-0); NEUTROPHILS ABSOLUTE MAN 7.47 K/mm3 (1.96-9.15); SEG NEUTROPHILS PERCENT MAN 73 % (41-73); TOTAL CELLS COUNTED 100
--- NOTE | 2019-09-04 17:03 | NUR ---
No acute changes noted. Patient complains of constant pain 4-5/ 10 even with PRN medications given. Patient is up and down between the bed and chair. The patient calls excesively reguardless of what he needs. Patient is no longer having multiple bowel movements during the shift but it does remain black and tarry in appearence. Dressing to patients incision site where changed this shift due to drainage. Coumadin was held and will be re-evaluated tomorrow. Will continue to monitor for changes.
[2019-09-05 05:53] LABS: Hematocrit 22.9 % (37.0-53.0); Hemoglobin 7.4 g/dL (13.5-17.5); Mean Corpuscular HGB 31.4 pg (26.0-34.0); Mean Corpuscular HGB Conc 32.3 g/dL (31.5-36.5); Mean Corpuscular Volume 97 fL (80-100); Mean Platelet Volume 8.7 fL (9.1-12.4); NRBC ABSOLUTE 0.03 K/mm3 (0.00-0.02); NRBC Auto 0.3 /100 WBC (0.0-0.2); Platelet Count 263 K/mm3 (150-400); RDW Coefficient Variation 15.3 % (11.7-14.2); RDW Standard Deviation 49.1 fL (35.1-46.3); Red Blood Cell Count 2.36 M/mm3 (4.30-5.90); White Blood Cell Count 9.89 K/mm3 (4.00-11.30)
[2019-09-05 06:06] LABS: International Normalized Ratio 1.14; Prothrombin Time Results 11.9 Sec (9.7-11.5)
[2019-09-05 06:16] LABS: Anion Gap 7 mmol/L (6-16); Blood Urea Nitrogen 46 mg/dL (8-24); Bun/Creatinine Ratio 39.3 (12.0-20.0); CO2, Blood 28 mmol/L (21-32); Calcium, Blood 8.9 mg/dL (8.5-10.1); Chloride, Blood 101 mmol/L (98-108); Creatinine, Blood 1.17 mg/dL (0.60-1.20); Glomerular Filtration Rate >60 (60-); Glucose, Blood 98 mg/dL (70-99); Potassium, Blood 3.2 mmol/L (3.5-5.5); Sodium, Blood 136 mmol/L (136-145)
--- NOTE | 2019-09-05 06:46 | NUR ---
shift summary: no acute changes noted. Left hip dressing had a large amount of serosanguinous fluid draining. dressings were changed. pt c/o pain 8-910 through the shift. he wants to discuss his pain med coverage today with the hospitalist. he received pain meds per order. ice to hip as tolerated. patient was restless, somewhat anxious in manner this shift.
[2019-09-05 07:09] LABS: BASOPHILS ABSOLUTE MAN 0.09 K/mm3 (0.00-0.23); BASOPHILS PERCENT MAN 1 % (0-2); EOSINOPHILS ABSOLUTE MAN 0.29 K/mm3 (0.00-0.68); EOSINOPHILS PERCENT MAN 3 % (0-6); LYMPHOCYTES ABSOLUTE MAN 0.69 K/mm3 (0.84-5.20); LYMPHOCYTES PERCENT MAN 7 % (21-46); METAMYELOCYTE ABSOLUTE MAN 0.09 K/mm3 (0.00-0.00); METAMYELOCYTE PERCENT MAN 1 % (0-0); MONOCYTES ABSOLUTE MAN 0.89 K/mm3 (0.16-1.47); MONOCYTES PERCENT MAN 9 % (4-13); MYELOCYTE ABSOLUTE MAN 0.29 K/mm3 (0.00-0.00); MYELOCYTE PERCENT MAN 3 % (0-0); NEUTROPHILS ABSOLUTE MAN 7.51 K/mm3 (1.96-9.15); SEG NEUTROPHILS PERCENT MAN 76 % (41-73); TOTAL CELLS COUNTED 100
--- NOTE | 2019-09-05 15:05 | NUR ---
REPORT CALLED TO [facility] RN AND PT. TRANSFERRED BACK TO FACILITY.
== END 2019-09-05 15:14 | DRG 682 ==
LOC: ER 08:00 → MEDS 08:01 → ICUE 17:01 → MEDS 08-31 09:42
PROVIDERS: Emergency Medicine; Nurse Practitioner Acute Care; ADMIT Hospitalist
PROC: 30233N1 Transfusion of Nonautologous Red Blood Cells into Peripheral Vein, Percutaneous Approach (ICD-10-PCS; principal; 2019-09-03)
DX: N17.9 Acute kidney failure, unspecified (principal); G92 Toxic encephalopathy; I13.0 Hypertensive heart and chronic kidney disease with heart failure and stage 1 through stage 4 chronic kidney disease, or unspecified chronic kidney disease; A04.72 Enterocolitis due to Clostridium difficile, not specified as recurrent; I24.8 Other forms of acute ischemic heart disease; I50.42 Chronic combined systolic (congestive) and diastolic (congestive) heart failure; E87.1 Hypo-osmolality and hyponatremia; T40.601A Poisoning by unspecified narcotics, accidental (unintentional), initial encounter; Z95.1 Presence of aortocoronary bypass graft; Z87.891 Personal history of nicotine dependence; E86.0 Dehydration; I25.10 Atherosclerotic heart disease of native coronary artery without angina pectoris; N18.3 Chronic kidney disease, stage 3 (moderate); E86.9 Volume depletion, unspecified; I48.91 Unspecified atrial fibrillation; Z95.0 Presence of cardiac pacemaker; R25.1 Tremor, unspecified; K21.9 Gastro-esophageal reflux disease without esophagitis; Z99.81 Dependence on supplemental oxygen; J44.9 Chronic obstructive pulmonary disease, unspecified; Y92.9 Unspecified place or not applicable; Z79.01 Long term (current) use of anticoagulants
CPT/HCPCS: 0097U; 36415; 36430; 36600; 51701; 70450; 71045; 73552; 80048; 80053; 81003; 82272; 82550; 82553; 82803; 82947; 83605; 83735; 83880; 84100; 84484; 84550; 85025; 85027; 85610; 85730; 86850; 86900; 86901; 86923; 87040; 87324; 93005; 93010; 94640; 94760; 94762; 96361-59; 96374-59; 96375-59; 97110; 97163; 97530; 99285-25; A9270; C1751; C9113; J2310; J2405; J3010; J7030; P9016; P9059

== ENCOUNTER 2020-02-24 14:27 | Inpatient (IN) | payer MEDICARE ==
[~2020-02-24] VITALS: Ht 180.3 cm; Wt 89.1 kg
[~2020-02-24 14:27] MED LIST changes: +ACET325 PO; +ASMANEX HFA13 GM INH; +ASMANEX220 MC3 INH; +Atarax10 MG PO; +BACL10 PO; +BISA10S PR; +Fleet Enema132 ML PR; -GABA100 PO; +GAVILAX17 GM PO; +HYDHCL25 PO; +Hair, Skin & N1 EACH PO; +LIDOCAINE PAIN1 EACH TOP; +METO5 PO; +MIRALAX17 GM PO; +Milk Of Ma400 MG/5 M PO; +ONDA4ODT PO; +Oyster Shell C500 MG PO; +POTCHL20ER PO; +Percocet 5-3251 EACH PO; +ROXICODONE5 MG PO; +Zofran8 MG PO
[2020-02-24 16:01] LABS: BASOPHILS ABSOLUTE AUTO 0.02 K/mm3 (0.00-0.23); BASOPHILS PERCENT AUTO 0 % (0-2); EOSINOPHILS ABSOLUTE AUTO 0.04 K/mm3 (0.00-0.68); EOSINOPHILS PERCENT AUTO 1 % (0-6); Hematocrit 32.7 % (37.0-53.0); Hemoglobin 10.6 g/dL (13.5-17.5); IMMATURE GRAN ABSOLUTE AUTO 0.03 K/mm3 (0.00-0.10); IMMATURE GRAN PERCENT AUTO 1 % (0-1); LYMPHOCYTES ABSOLUTE AUTO 0.27 K/mm3 (0.84-5.20); LYMPHOCYTES PERCENT AUTO 4 % (21-46); MONOCYTES ABSOLUTE AUTO 0.34 K/mm3 (0.16-1.47); MONOCYTES PERCENT AUTO 5 % (4-13); Mean Corpuscular HGB 26.8 pg (26.0-34.0); Mean Corpuscular HGB Conc 32.4 g/dL (31.5-36.5); Mean Corpuscular Volume 83 fL (80-100); Mean Platelet Volume 9.1 fL (9.1-12.4); NEUTROPHILS ABSOLUTE AUTO 5.57 K/mm3 (1.96-9.15); NEUTROPHILS PERCENT AUTO 89 % (41-73); Platelet Count 153 K/mm3 (150-400); RDW Coefficient Variation 16.9 % (11.7-14.2); RDW Standard Deviation 51.5 fL (35.1-46.3); Red Blood Cell Count 3.96 M/mm3 (4.30-5.90); White Blood Cell Count 6.27 K/mm3 (4.00-11.30)
[2020-02-24] MEDS ORDERED: METO50ER PO ×2 (16:06→18:50)
[2020-02-24 16:20] LABS: Troponin I 0.054 ng/mL (0.000-0.040)
[2020-02-24 16:29] LABS: Source, Urine Catheter
[2020-02-24 16:46] LABS: Albumin, Blood 3.9 g/dL (3.4-5.0); Albumin/Globulin Ratio 1.1 (0.8-1.8); Bilirubin, Total 0.6 mg/dL (0.1-1.0); Bun/Creatinine Ratio 35.4 (12.0-20.0); Calcium, Blood 9.4 mg/dL (8.5-10.1); Creatinine, Blood 3.05 mg/dL (0.60-1.20); Globulin, Blood 3.4 g/dL (2.2-4.0); Potassium, Blood 4.7 mmol/L (3.5-5.5); Total Protein, Blood 7.3 g/dL (6.4-8.2)
[2020-02-24 16:55] LABS: Bilirubin, Urine Neg (Neg); Blood, Urine Neg (Neg); Glucose Qualitative, Urine Neg (Neg); Ketones, Urine Neg (Neg); Leukocyte Esterase, Urine Neg (Neg); Nitrite, Urine Neg (Neg); Protein, Urine Neg (Neg); Urobilinogen, Urine NORM (Normal)
[2020-02-24 17:09] LABS: Appearance, Urine Clear (Clear); Color, Urine Pale Yellow (P-Yellow)
[2020-02-24] MEDS ORDERED: Percocet 5-3251 EACH PO ×2 (17:31→21:16)
[2020-02-24] MEDS ORDERED: PANT40 PO ×2 (17:32→21:17)
[2020-02-24] MEDS ORDERED: LISI20 PO ×2 (17:32→21:17)
[2020-02-24] MEDS ORDERED: POTCHL20ER PO ×2 (17:32→21:16)
[2020-02-24] MEDS ORDERED: METO5 PO (17:32)
[2020-02-24] MEDS ORDERED: ATOR40TA PO (17:33)
[2020-02-24] MEDS ORDERED: ALBU90OI INH (17:33)
[2020-02-24] MEDS ORDERED: EUTHYROX50 MCG PO (17:35)
[2020-02-24] MEDS ORDERED: FURO40 PO ×3 (17:35→21:20)
[2020-02-24] MEDS ORDERED: TRAZ50 PO ×2 (17:36→21:21)
[2020-02-24] MEDS ORDERED: CITA20 PO (17:36)
[2020-02-24 17:44] LABS: Magnesium, Blood 1.8 mg/dL (1.6-2.4)
[2020-02-24] MEDS ORDERED: GABA100 PO ×2 (17:44→21:23)
[2020-02-24 17:46] LABS: Phosphorus, Blood 5.4 mg/dL (2.5-4.9); Thyroid Stimulating Hormone 5.4 uIU/mL (0.360-4.800)
[2020-02-24] MEDS ORDERED: LIDO700A20 TOP (17:58)
[2020-02-24 18:38] LABS: International Normalized Ratio 0.98; Prothrombin Time Results 10.5 Sec (9.7-11.5)
[2020-02-24] MEDS ORDERED: TORSE20 PO (18:51)
[2020-02-24] MEDS ORDERED: ATOR20 PO (21:18)
[2020-02-24] MEDS ORDERED: LEVSOD50 PO (21:21)
[2020-02-24] MEDS ORDERED: CITALOPRAM HBR10 MG PO (21:22)
[2020-02-24 21:36] LABS: Anion Gap 13 mmol/L (6-16); Blood Urea Nitrogen 112 mg/dL (8-24); CO2, Blood 22 mmol/L (21-32); Calcium, Blood 9.7 mg/dL (8.5-10.1); Chloride, Blood 84 mmol/L (98-108); Creatinine, Blood 2.87 mg/dL (0.60-1.20); Glomerular Filtration Rate 23 (60-); Glucose, Blood 90 mg/dL (70-99); Phosphorus, Blood 4.6 mg/dL (2.5-4.9); Potassium, Blood 4.8 mmol/L (3.5-5.5); Sodium, Blood 119 mmol/L (136-145)
--- NOTE | 2020-02-24 22:31 | NUR ---
ASSUMED CARE OF PATIENT AT APPROXIMATELY 1930 FROM ER. REPORT GIVEN BY [place] RN BEFORE SHE LEFT AND PATIENT ARRIVED LATER. PATIENT ARRIVED TO UNIT VIA STRETCHER; TRANSFER MAX ASSIST FROM ED TO PCU STRETCHER. PATIENT ALERT AND ORIENTED TO SELF; FORGETFUL; UNABLE TO GIVE DETAILS ON MEDICATIONS OR HX; YOLANDANET REPORTS DAUGHTER JORGE IS CAREGIVER TO HIM AND HIS SPOUSE AND HIS SPOUSE HELPS CARE FOR HIM WELL. PATIENT FELL BEFORE ARRIVAL TO HOSPITAL; ABRASIONS AND BRUISING NOTED; PHOTOS TAKEN; WOUNDS CLEANED AND DRESSED. ADMISSION COMPLETED. PATIENT REPORTS PAIN IN LEFT HIP/LEG FROM FX LAST YEAR; TAKES PO PAIN MEDICATIONS AT HOME; SAME MEDICATIONS PRESCRIBED; MEDICATED PER EMAR. PATIENT DENIES NUMBNESS, TINGLING, DIZZINESS OR NAUSEA. PACED W/ BIGEMINY PVC'S ON TELE; OXYGEN SATURATION ABOVE 90% ON ROOM AIR; PATIENT USES 4LPM VIA NC AT NOC. PIV INFUSING PER ORDER. Q2 H TURNS. PATIENT REFUSED ORTHOSTATIC VS. SODIUM IMPROVED; STILL CRITICALLY LOW 119; JOHN LOPEZ AWARE. JOHN LOPEZ STOPPED BY AT APPROXIMATLEY 2215 TO ASK FOR BLADDER SCAN; 583; NO URGE TO VOID BY PATIENT; ORDER TO PLACE URINARY CATHETER NEXT TIME PATIENT CALLS. PATIENT CURRENTLY RESTING IN BED; CALL LIGHT IN REACH; BED IN LOWEST POSISTION; BED ALARM ON; WILL CONTINUE TO MONITOR AND ASSESS UNTIL END OF SHIFT.
--- NOTE | 2020-02-24 23:40 | NUR ---
PATIENT REFUSED TO HAVE URINARY CATH PLACED.
[2020-02-25 04:08] LABS: BASOPHILS ABSOLUTE AUTO 0.02 K/mm3 (0.00-0.23); BASOPHILS PERCENT AUTO 0 % (0-2); EOSINOPHILS ABSOLUTE AUTO 0.04 K/mm3 (0.00-0.68); EOSINOPHILS PERCENT AUTO 1 % (0-6); Hematocrit 31.2 % (37.0-53.0); Hemoglobin 10.2 g/dL (13.5-17.5); IMMATURE GRAN ABSOLUTE AUTO 0.03 K/mm3 (0.00-0.10); IMMATURE GRAN PERCENT AUTO 1 % (0-1); LYMPHOCYTES ABSOLUTE AUTO 0.46 K/mm3 (0.84-5.20); LYMPHOCYTES PERCENT AUTO 8 % (21-46); MONOCYTES ABSOLUTE AUTO 0.58 K/mm3 (0.16-1.47); MONOCYTES PERCENT AUTO 11 % (4-13); Mean Corpuscular HGB 26.9 pg (26.0-34.0); Mean Corpuscular HGB Conc 32.7 g/dL (31.5-36.5); Mean Corpuscular Volume 82 fL (80-100); Mean Platelet Volume 9.2 fL (9.1-12.4); NEUTROPHILS ABSOLUTE AUTO 4.41 K/mm3 (1.96-9.15); NEUTROPHILS PERCENT AUTO 80 % (41-73); Platelet Count 166 K/mm3 (150-400); RDW Standard Deviation 50.3 fL (35.1-46.3); Red Blood Cell Count 3.79 M/mm3 (4.30-5.90); White Blood Cell Count 5.54 K/mm3 (4.00-11.30)
[2020-02-25 04:28] LABS: Source, Urine Catheter
[2020-02-25 04:30] LABS: Bilirubin, Urine Neg (Neg); Blood, Urine 3+ (Neg); Glucose Qualitative, Urine Neg (Neg); Ketones, Urine Neg (Neg); Leukocyte Esterase, Urine Neg (Neg); Nitrite, Urine Neg (Neg); Protein, Urine Neg (Neg); Urobilinogen, Urine NORM (Normal)
--- NOTE | 2020-02-25 04:31 | NUR ---
URINARY CATH PLACED; 700 OUTPUT; PATIENT CURRENTLY ATTEMPTING BM ON BEDPAN. 100% PACED W/ NO PVCS NOW AT 70 ON TELE. AM LABS PENDING. WILL CONTINUE TO MONITOR AND ASSESS UNTIL END OF SHIFT.
[2020-02-25 04:32] LABS: Albumin, Blood 3.7 g/dL (3.4-5.0); Anion Gap 10 mmol/L (6-16); Blood Urea Nitrogen 102 mg/dL (8-24); Bun/Creatinine Ratio 41.8 (12.0-20.0); CO2, Blood 24 mmol/L (21-32); Calcium, Blood 9.7 mg/dL (8.5-10.1); Chloride, Blood 87 mmol/L (98-108); Creatinine, Blood 2.44 mg/dL (0.60-1.20); Glomerular Filtration Rate 27 (60-); Glucose, Blood 87 mg/dL (70-99); Phosphorus, Blood 4.4 mg/dL (2.5-4.9); Potassium, Blood 4.4 mmol/L (3.5-5.5); Sodium, Blood 121 mmol/L (136-145)
[2020-02-25 04:40] LABS: Appearance, Urine Clear (Clear); Color, Urine Yellow (P-Yellow)
[2020-02-25 04:46] LABS: Bacteria Few /hpf; Red Blood Cells, Urine 0-2 /hpf (0-2); Squamous Epithelial Cells Not Seen /hpf (Few); White Blood Cells, Urine 0-2 /hpf (0-5)
--- NOTE | 2020-02-25 06:29 | NUR ---
NO ACUTE CHANGES TO REPORT. PATIENT UP TO BEDSIDE COMMODE WITH 2 PERSON MAX ASSIST FWW AND GAIT BELT THEN TO CHAIR; NO BM. VSS. WILL CONTINUE TO MONITOR AND ASSESS UNTIL END OF SHIFT.
--- NOTE | 2020-02-25 19:56 | NUR ---
PT SUMMARY: PT ALERT BUT FORGETFUL AT TIMES D/T DEMENTIA. PT CURRENTLY RECEIVING PT/OT FOR STRENGTHENING. PT HAS BEEN TRANSFERRING TO COMMODE 1 PA VIA WALKER. PT C/O PAIN ON LEFT HIP PAIN MEDS GIVEN X 1 AND WAS EFFECTIVE. PT VITALS STABLE HRR PACED ON THE 80'S, CURRENTLY RUNNING NS @100MLS/HR FOR HYDRATION. PT HAS BEEN COOPERATIVE WITH CARE. MEDS ON HOLD AT THIS TIME RASHAWN DIURETICS. NO OTHER COMPLAINS FOR THE SHIFT, CURRENTLY IN BED, CALL LIGHTS WITHIN REACH, REPORT GIVEN TO ONCOMING NURSE
[2020-02-26 04:08] LABS: Hematocrit 28.7 % (37.0-53.0); Hemoglobin 9.3 g/dL (13.5-17.5); Mean Corpuscular HGB 26.8 pg (26.0-34.0); Mean Corpuscular HGB Conc 32.4 g/dL (31.5-36.5); Mean Corpuscular Volume 83 fL (80-100); Mean Platelet Volume 9.5 fL (9.1-12.4); Platelet Count 153 K/mm3 (150-400); RDW Coefficient Variation 17.5 % (11.7-14.2); RDW Standard Deviation 52.6 fL (35.1-46.3); Red Blood Cell Count 3.47 M/mm3 (4.30-5.90); White Blood Cell Count 4.45 K/mm3 (4.00-11.30)
[2020-02-26 04:24] LABS: Bun/Creatinine Ratio 41.8 (12.0-20.0); Calcium, Blood 9.5 mg/dL (8.5-10.1); Creatinine, Blood 2.08 mg/dL (0.60-1.20); Potassium, Blood 4.2 mmol/L (3.5-5.5)
[2020-02-26 04:34] LABS: Percent Saturation 21.9 % (20.0-50.0)
--- NOTE | 2020-02-26 06:04 | NUR ---
SHIFT SUMMARY PT RESTING IN ROOM COMFORTABLY AT THIS TIME. NO ACUTE CHANGES IN STATUS T/O NIGHT. PT SLEPT WELL T/O SHIFT. RESP EVEN UNLABORED ON 4L NC DURING NOC W/ SATS >92%. DALE CATH IN PLACE DRAINING CLEAR YELLOW URINE. NS INFUSING IN P[IV AT 100ML/HR. PT DENIED OTHER NEEDS. WAS MEDICATED ONCE PER EMAR FOR PAIN. CALL LIGHT IN REACH. PT UP IN CHAIR THIS AM W/ CAHIR ALARM FOR SAFETY.
--- NOTE | 2020-02-26 11:44 | NUR ---
Spiritual care visit conducted. Patient is sitting on a chair and alert. PAtient tells me that he is being DC today. Patient tells me about his life, his family and his dog "Riaz Nolan." Patient talks about his many medical conditions, his gratitude for the wonderful staff at [facility] and his 54 years of marriage to the love of his life. Patient is inspired by his family, his dog and the great memories he has. I listen empathically, normalize patient's experience and provide companionship. Patient responds well and shows signs of an elevated mood.
[2020-02-26] MEDS ORDERED: TRIPLE ANTIBIO1 EAC1 TOP (13:22)
--- NOTE | 2020-02-26 14:15 | NUR ---
PATIENT PROVIDED WITH DISCHARGE INFO REGARDING REASONS TO RETURN TO THE HOSPITAL, FOLLOW-UP INSTRUCTIONS, AND MEDICATION INFORMATION. NO SIGNS OF ACUTE DISTRESS. PATIENT LEFT VIA WHEELCHAIR.
== END 2020-02-26 14:08 | disposition home health service (06) | DRG 683 ==
LOC: ER 14:27 → MEDS 19:05 → PCU 19:30
PROVIDERS: Internal Medicine; Nurse Practitioner Acute Care; Physician Assistant; ADMIT Internal Medicine
DX: N17.9 Acute kidney failure, unspecified (principal); I13.0 Hypertensive heart and chronic kidney disease with heart failure and stage 1 through stage 4 chronic kidney disease, or unspecified chronic kidney disease; I50.42 Chronic combined systolic (congestive) and diastolic (congestive) heart failure; E87.1 Hypo-osmolality and hyponatremia; Z79.01 Long term (current) use of anticoagulants; I25.10 Atherosclerotic heart disease of native coronary artery without angina pectoris; N18.3 Chronic kidney disease, stage 3 (moderate); F32.9 Major depressive disorder, single episode, unspecified; I48.91 Unspecified atrial fibrillation; J44.9 Chronic obstructive pulmonary disease, unspecified; Z99.81 Dependence on supplemental oxygen; K21.9 Gastro-esophageal reflux disease without esophagitis; Z95.1 Presence of aortocoronary bypass graft; I95.9 Hypotension, unspecified; E86.0 Dehydration; Z95.0 Presence of cardiac pacemaker; W18.30XA Fall on same level, unspecified, initial encounter; Y93.9 Activity, unspecified; Y92.9 Unspecified place or not applicable; S51.811A Laceration without foreign body of right forearm, initial encounter; S51.812A Laceration without foreign body of left forearm, initial encounter; Z87.891 Personal history of nicotine dependence
CPT/HCPCS: 36415; 70450; 71045; 73502; 76770; 80048; 80053; 80069; 81001; 81003; 82728; 83540; 83550; 83605; 83735; 83880; 84100; 84300; 84439; 84443; 84484; 85025; 85027; 85610; 85730; 87040; 93005; 93010; 94760; 96360; 96361; 97110; 97116; 97162; 97166; 97530; 99285-25; A9270-GY; J7030

== ENCOUNTER 2020-03-10 10:47 | Inpatient (IN) | payer MEDICARE ==
[~2020-03-10] VITALS: Ht 180.3 cm; Wt 89.8 kg
[~2020-03-10 10:47] MED LIST changes: +ALBU90OI INH; +ATOR20 PO; +CITALOPRAM HBR10 MG PO; +EUTHYROX50 MCG PO; +GABA100 PO; +LEVSOD50 PO; +METO50ER PO; +TORSE20 PO; +TRIPLE ANTIBIO1 EAC1 TOP
[2020-03-10 11:24] LABS: BASOPHILS ABSOLUTE AUTO 0.01 K/mm3 (0.00-0.23); BASOPHILS PERCENT AUTO 0 % (0-2); EOSINOPHILS ABSOLUTE AUTO 0.01 K/mm3 (0.00-0.68); EOSINOPHILS PERCENT AUTO 0 % (0-6); Hematocrit 35.2 % (37.0-53.0); Hemoglobin 11.8 g/dL (13.5-17.5); IMMATURE GRAN ABSOLUTE AUTO 0.03 K/mm3 (0.00-0.10); IMMATURE GRAN PERCENT AUTO 1 % (0-1); LYMPHOCYTES ABSOLUTE AUTO 0.42 K/mm3 (0.84-5.20); LYMPHOCYTES PERCENT AUTO 8 % (21-46); MONOCYTES ABSOLUTE AUTO 0.56 K/mm3 (0.16-1.47); MONOCYTES PERCENT AUTO 10 % (4-13); Mean Corpuscular HGB 27.5 pg (26.0-34.0); Mean Corpuscular HGB Conc 33.5 g/dL (31.5-36.5); Mean Corpuscular Volume 82 fL (80-100); Mean Platelet Volume 9.1 fL (9.1-12.4); NEUTROPHILS PERCENT AUTO 82 % (41-73); Platelet Count 171 K/mm3 (150-400); RDW Coefficient Variation 17.4 % (11.7-14.2); RDW Standard Deviation 51.4 fL (35.1-46.3); Red Blood Cell Count 4.29 M/mm3 (4.30-5.90); White Blood Cell Count 5.63 K/mm3 (4.00-11.30)
[2020-03-10 11:45] LABS: Source, Urine Clean Catch
[2020-03-10 11:48] LABS: Albumin, Blood 4.2 g/dL (3.4-5.0); Albumin/Globulin Ratio 1.3 (0.8-1.8); Bilirubin, Total 1.4 mg/dL (0.1-1.0); Bun/Creatinine Ratio 30.2 (12.0-20.0); Calcium, Blood 9.9 mg/dL (8.5-10.1); Creatinine, Blood 1.59 mg/dL (0.60-1.20); Globulin, Blood 3.3 g/dL (2.2-4.0); Total Protein, Blood 7.5 g/dL (6.4-8.2)
[2020-03-10 11:48] LABS: Bilirubin, Urine Neg (Neg); Blood, Urine Neg (Neg); Glucose Qualitative, Urine Neg (Neg); Ketones, Urine Neg (Neg); Leukocyte Esterase, Urine Neg (Neg); Nitrite, Urine Neg (Neg); Protein, Urine Neg (Neg); Specific Gravity, Urine 1.015 (1.003-1.022); Urobilinogen, Urine NORM (Normal)
[2020-03-10 11:51] LABS: Appearance, Urine Clear (Clear); Color, Urine Yellow (P-Yellow)
[2020-03-10 12:24] LABS: Magnesium, Blood 2.4 mg/dL (1.6-2.4); Phosphorus, Blood 2.5 mg/dL (2.5-4.9)
[2020-03-10 13:51] LABS: Thyroid Stimulating Hormone 3.16 uIU/mL (0.360-4.800)
[2020-03-10 13:55] LABS: Sodium, Urine, Random 16 mmol/L (20-110)
[2020-03-10 13:57] LABS: Osmolality, Urine 275 mos/kg (15-1400)
[2020-03-10 14:34] LABS: Prothrombin Time Results 10.7 Sec (9.7-11.5)
[2020-03-11 01:09] LABS: Source, Urine Catheter
[2020-03-11 01:11] LABS: Bilirubin, Urine Neg (Neg); Blood, Urine Neg (Neg); Glucose Qualitative, Urine Neg (Neg); Ketones, Urine Neg (Neg); Leukocyte Esterase, Urine Neg (Neg); Nitrite, Urine Neg (Neg); Protein, Urine Neg (Neg); Specific Gravity, Urine 1.005 (1.003-1.022); Urobilinogen, Urine NORM (Normal); pH, Urine 6.5 (5.0-8.0)
[2020-03-11 01:15] LABS: Appearance, Urine Clear (Clear); Color, Urine Yellow (P-Yellow)
[2020-03-11 05:20] LABS: BASOPHILS ABSOLUTE AUTO 0.02 K/mm3 (0.00-0.23); BASOPHILS PERCENT AUTO 0 % (0-2); EOSINOPHILS ABSOLUTE AUTO 0.05 K/mm3 (0.00-0.68); EOSINOPHILS PERCENT AUTO 1 % (0-6); Hematocrit 33.1 % (37.0-53.0); Hemoglobin 10.8 g/dL (13.5-17.5); IMMATURE GRAN ABSOLUTE AUTO 0.03 K/mm3 (0.00-0.10); IMMATURE GRAN PERCENT AUTO 1 % (0-1); LYMPHOCYTES ABSOLUTE AUTO 0.46 K/mm3 (0.84-5.20); LYMPHOCYTES PERCENT AUTO 10 % (21-46); MONOCYTES ABSOLUTE AUTO 0.59 K/mm3 (0.16-1.47); MONOCYTES PERCENT AUTO 12 % (4-13); Mean Corpuscular HGB 27.2 pg (26.0-34.0); Mean Corpuscular HGB Conc 32.6 g/dL (31.5-36.5); Mean Corpuscular Volume 83 fL (80-100); Mean Platelet Volume 9.3 fL (9.1-12.4); NEUTROPHILS ABSOLUTE AUTO 3.63 K/mm3 (1.96-9.15); NEUTROPHILS PERCENT AUTO 76 % (41-73); Platelet Count 149 K/mm3 (150-400); RDW Coefficient Variation 17.2 % (11.7-14.2); RDW Standard Deviation 53.1 fL (35.1-46.3); Red Blood Cell Count 3.97 M/mm3 (4.30-5.90); White Blood Cell Count 4.78 K/mm3 (4.00-11.30)
[2020-03-11 05:44] LABS: Albumin, Blood 3.8 g/dL (3.4-5.0); Albumin/Globulin Ratio 1.3 (0.8-1.8); Bilirubin, Total 1.1 mg/dL (0.1-1.0); Bun/Creatinine Ratio 33.6 (12.0-20.0); Calcium, Blood 9.5 mg/dL (8.5-10.1); Creatinine, Blood 1.28 mg/dL (0.60-1.20); Globulin, Blood 2.9 g/dL (2.2-4.0); Magnesium, Blood 2.3 mg/dL (1.6-2.4); Potassium, Blood 3.2 mmol/L (3.5-5.5); Total Protein, Blood 6.7 g/dL (6.4-8.2)
[2020-03-11 15:03] LABS: Bun/Creatinine Ratio 31.1 (12.0-20.0); Calcium, Blood 9.2 mg/dL (8.5-10.1); Creatinine, Blood 1.32 mg/dL (0.60-1.20); Potassium, Blood 3.2 mmol/L (3.5-5.5)
[2020-03-11] MEDS ORDERED: ALBU90OI INH (22:47)
[2020-03-11] MEDS ORDERED: METO5 PO (22:52)
[2020-03-11] MEDS ORDERED: Vitamin D2000 UNIT PO (22:56)
[2020-03-11] MEDS ORDERED: LISI20 PO (22:58)
[2020-03-12 08:28] LABS: Anion Gap 6 mmol/L (6-16); Blood Urea Nitrogen 28 mg/dL (8-24); Bun/Creatinine Ratio 23.3 (12.0-20.0); CO2, Blood 30 mmol/L (21-32); Calcium, Blood 9.5 mg/dL (8.5-10.1); Chloride, Blood 94 mmol/L (98-108); Glomerular Filtration Rate >60 (60-); Glucose, Blood 95 mg/dL (70-99); Potassium, Blood 3.6 mmol/L (3.5-5.5); Sodium, Blood 130 mmol/L (136-145)
== END 2020-03-12 15:06 | disposition home or self-care (01) | DRG 683 ==
LOC: ER 10:47 → MEDS 13:50 → ENPENDDIS 03-12 10:38 → MEDS 03-12 15:06
PROVIDERS: Emergency Medicine; Nurse Practitioner Acute Care; Physician Assistant; ADMIT Hospitalist
DX: N17.9 Acute kidney failure, unspecified (principal); E87.1 Hypo-osmolality and hyponatremia; I13.0 Hypertensive heart and chronic kidney disease with heart failure and stage 1 through stage 4 chronic kidney disease, or unspecified chronic kidney disease; I50.22 Chronic systolic (congestive) heart failure; I48.20 Chronic atrial fibrillation, unspecified; E03.9 Hypothyroidism, unspecified; J44.9 Chronic obstructive pulmonary disease, unspecified; N18.3 Chronic kidney disease, stage 3 (moderate); F32.9 Major depressive disorder, single episode, unspecified; I25.10 Atherosclerotic heart disease of native coronary artery without angina pectoris; Z95.1 Presence of aortocoronary bypass graft; K21.9 Gastro-esophageal reflux disease without esophagitis; Z95.810 Presence of automatic (implantable) cardiac defibrillator; Z87.891 Personal history of nicotine dependence
CPT/HCPCS: 36415; 71046; 80048; 80053; 81003; 83735; 83880; 83930; 83935; 84100; 84295; 84300; 84443; 84484; 85025; 85610; 93005; 93010; 96360; 97110; 97116; 97162; 97166; 97530; 97535; 99285-25; A9270-GY; J1650; J3480; J7030; J7040

== ENCOUNTER 2020-06-08 11:16 | Emergency (ER) | payer OTHER, MEDICARE ==
[~2020-06-08] VITALS: Ht 180.3 cm; Wt 81.7 kg
[2020-06-08 11:45] LABS: BASOPHILS ABSOLUTE AUTO 0.03 K/mm3 (0.00-0.23); BASOPHILS PERCENT AUTO 1 % (0-2); EOSINOPHILS ABSOLUTE AUTO 0.06 K/mm3 (0.00-0.68); EOSINOPHILS PERCENT AUTO 1 % (0-6); Hematocrit 35.5 % (37.0-53.0); Hemoglobin 11.4 g/dL (13.5-17.5); IMMATURE GRAN ABSOLUTE AUTO 0.02 K/mm3 (0.00-0.10); IMMATURE GRAN PERCENT AUTO 0 % (0-1); LYMPHOCYTES ABSOLUTE AUTO 0.34 K/mm3 (0.84-5.20); LYMPHOCYTES PERCENT AUTO 6 % (21-46); MONOCYTES ABSOLUTE AUTO 0.74 K/mm3 (0.16-1.47); MONOCYTES PERCENT AUTO 14 % (4-13); Mean Corpuscular HGB 29.7 pg (26.0-34.0); Mean Corpuscular HGB Conc 32.1 g/dL (31.5-36.5); Mean Corpuscular Volume 92 fL (80-100); Mean Platelet Volume 9.1 fL (9.1-12.4); NEUTROPHILS ABSOLUTE AUTO 4.23 K/mm3 (1.96-9.15); NEUTROPHILS PERCENT AUTO 78 % (41-73); Platelet Count 198 K/mm3 (150-400); RDW Coefficient Variation 13.1 % (11.7-14.2); Red Blood Cell Count 3.84 M/mm3 (4.30-5.90); White Blood Cell Count 5.42 K/mm3 (4.00-11.30)
[2020-06-08 12:03] LABS: Albumin, Blood 3.7 g/dL (3.4-5.0); Albumin/Globulin Ratio 1.2 (0.8-1.8); Bilirubin, Total 1.6 mg/dL (0.1-1.0); Bun/Creatinine Ratio 21.6 (12.0-20.0); Calcium, Blood 9.7 mg/dL (8.5-10.1); Creatinine, Blood 1.25 mg/dL (0.60-1.20); Globulin, Blood 3.2 g/dL (2.2-4.0); Potassium, Blood 3.2 mmol/L (3.5-5.5); Total Protein, Blood 6.9 g/dL (6.4-8.2)
[2020-06-08 12:08] LABS: International Normalized Ratio 1.04; Prothrombin Time Results 11.1 Sec (9.7-11.5)
[2020-06-08 12:35] LABS: Source, Urine Clean Catch
[2020-06-08 12:37] LABS: Bilirubin, Urine Neg (Neg); Blood, Urine Neg (Neg); Glucose Qualitative, Urine Neg (Neg); Ketones, Urine Neg (Neg); Leukocyte Esterase, Urine 2+ (Neg); Nitrite, Urine Neg (Neg); Protein, Urine Neg (Neg); Urobilinogen, Urine NORM (Normal); pH, Urine 6.5 (5.0-8.0)
[2020-06-08 12:49] LABS: Appearance, Urine Hazy (Clear); Bacteria Rare /hpf; Color, Urine Yellow (P-Yellow); Red Blood Cells, Urine Not Seen /hpf (0-2); Squamous Epithelial Cells Few /hpf (Few); Transitional Epithelial Cells Rare /hpf (0-Rare)
== END 2020-06-08 14:25 | disposition home or self-care (01) ==
LOC: ER 11:16
PROVIDERS: Emergency Medicine; Physician Assistant
DX: R60.0 Localized edema (principal); Z79.899 Other long term (current) drug therapy; I48.91 Unspecified atrial fibrillation; I25.810 Atherosclerosis of coronary artery bypass graft(s) without angina pectoris; I13.0 Hypertensive heart and chronic kidney disease with heart failure and stage 1 through stage 4 chronic kidney disease, or unspecified chronic kidney disease; I50.42 Chronic combined systolic (congestive) and diastolic (congestive) heart failure; N18.3 Chronic kidney disease, stage 3 (moderate); F32.9 Major depressive disorder, single episode, unspecified; K21.9 Gastro-esophageal reflux disease without esophagitis; K44.9 Diaphragmatic hernia without obstruction or gangrene; Z87.891 Personal history of nicotine dependence
CPT/HCPCS: 36415; 74176; 80053; 81001; 83880; 84484; 85025; 85610; 87086; 93005; 93010; 96374; 99284-25; J1940

== ENCOUNTER 2020-11-26 16:42 | Inpatient (IN) | payer OTHER, MEDICARE ==
[~2020-11-26] VITALS: Ht 180.3 cm; Wt 81.8 kg
[~2020-11-26 16:42] MED LIST changes: -LEVSOD50 PO
[2020-11-26 17:27] LABS: BASOPHILS ABSOLUTE AUTO 0.02 K/mm3 (0.00-0.23); BASOPHILS PERCENT AUTO 0 % (0-2); EOSINOPHILS ABSOLUTE AUTO 0.03 K/mm3 (0.00-0.68); EOSINOPHILS PERCENT AUTO 0 % (0-6); Hematocrit 36.6 % (37.0-53.0); Hemoglobin 10.8 g/dL (13.5-17.5); IMMATURE GRAN ABSOLUTE AUTO 0.06 K/mm3 (0.00-0.10); IMMATURE GRAN PERCENT AUTO 1 % (0-1); LYMPHOCYTES ABSOLUTE AUTO 1.36 K/mm3 (0.84-5.20); LYMPHOCYTES PERCENT AUTO 12 % (21-46); MONOCYTES ABSOLUTE AUTO 0.91 K/mm3 (0.16-1.47); MONOCYTES PERCENT AUTO 8 % (4-13); Mean Corpuscular HGB 26.5 pg (26.0-34.0); Mean Corpuscular HGB Conc 29.5 g/dL (31.5-36.5); Mean Corpuscular Volume 90 fL (80-100); Mean Platelet Volume 9.1 fL (9.1-12.4); NEUTROPHILS PERCENT AUTO 79 % (41-73); Platelet Count 226 K/mm3 (150-400); RDW Coefficient Variation 15.2 % (11.7-14.2); RDW Standard Deviation 49.6 fL (35.1-46.3); Red Blood Cell Count 4.08 M/mm3 (4.30-5.90); White Blood Cell Count 11.48 K/mm3 (4.00-11.30)
[2020-11-26 17:47] LABS: Alanine Aminotransfer (ALT/SGP 21 U/L (12-78); Albumin, Blood 3.5 g/dL (3.4-5.0); Albumin/Globulin Ratio 1.1 (0.8-1.8); Alk Phos 85 U/L (50-136); Anion Gap 10 mmol/L (6-16); Aspartate Aminotrans (AST/SGOT 31 U/L (12-37); Bilirubin, Total 1.9 mg/dL (0.1-1.0); Blood Urea Nitrogen 26 mg/dL (8-24); Bun/Creatinine Ratio 26.9 (12.0-20.0); CO2, Blood 29 mmol/L (21-32); Calcium, Blood 9.5 mg/dL (8.5-10.1); Chloride, Blood 99 mmol/L (98-108); Creatinine, Blood 0.97 mg/dL (0.60-1.20); Globulin, Blood 3.1 g/dL (2.2-4.0); Glomerular Filtration Rate >60 (60-); Glucose, Blood 91 mg/dL (70-99); International Normalized Ratio 1.06; Potassium, Blood 4.1 mmol/L (3.5-5.5); Prothrombin Time Results 11.3 Sec (9.7-11.5); Sodium, Blood 138 mmol/L (136-145); Total Protein, Blood 6.6 g/dL (6.4-8.2); Troponin I 0.093 ng/mL (0.000-0.040)
[2020-11-26] MEDS ORDERED: TAMSULOSIN HCL0.4 M1 PO (17:57)
[2020-11-26] MEDS ORDERED: FURO40 PO (18:06)
[2020-11-26] MEDS ORDERED: LEVSOD100 PO (18:07)
[2020-11-26] MEDS ORDERED: TRAZ50 PO (18:07)
[2020-11-26] MEDS ORDERED: FAMO20 PO (18:08)
[2020-11-26] MEDS ORDERED: Aspir 8181 MG PO (18:08)
[2020-11-26] MEDS ORDERED: POTCHL20ER PO (18:09)
[2020-11-26] MEDS ORDERED: DOCU100 PO (18:09)
[2020-11-26] MEDS ORDERED: CENTRUM SILVER1 EAC2 PO (18:10)
[2020-11-26 18:27] LABS: Source, Urine Clean Catch
[2020-11-26 18:41] LABS: Appearance, Urine Clear (Clear); Bilirubin, Urine Neg (Neg); Blood, Urine Neg (Neg); Color, Urine Yellow (P-Yellow); Glucose Qualitative, Urine Neg (Neg); Ketones, Urine Neg (Neg); Leukocyte Esterase, Urine Neg (Neg); Nitrite, Urine Neg (Neg); Protein, Urine 3+ (Neg); Specific Gravity, Urine 1.025 (1.003-1.022); Urobilinogen, Urine 2+ (Normal)
[2020-11-26 18:50] LABS: Influenza A, PCR Negative (NEGATIVE); Influenza B, PCR Negative (NEGATIVE); Resp Syncytial Virus, PCR Negative (NEGATIVE); SARS-Cov-2 (COVID-19) PCR, MMC Negative (NEGATIVE)
[2020-11-26 18:53] LABS: Bacteria Not Seen /hpf; Hyaline Casts 0-2 /lpf (0-2); Mucus Light (0-Heavy); Red Blood Cells, Urine 0-2 /hpf (0-2); Squamous Epithelial Cells Not Seen /hpf (Few); White Blood Cells, Urine Not Seen /hpf (0-5)
[2020-11-27 01:19] LABS: BASOPHILS ABSOLUTE AUTO 0.02 K/mm3 (0.00-0.23); BASOPHILS PERCENT AUTO 0 % (0-2); EOSINOPHILS ABSOLUTE AUTO 0.01 K/mm3 (0.00-0.68); EOSINOPHILS PERCENT AUTO 0 % (0-6); Hematocrit 35.5 % (37.0-53.0); Hemoglobin 10.6 g/dL (13.5-17.5); IMMATURE GRAN PERCENT AUTO 1 % (0-1); LYMPHOCYTES ABSOLUTE AUTO 1.27 K/mm3 (0.84-5.20); LYMPHOCYTES PERCENT AUTO 12 % (21-46); MONOCYTES ABSOLUTE AUTO 0.84 K/mm3 (0.16-1.47); MONOCYTES PERCENT AUTO 8 % (4-13); Mean Corpuscular HGB Conc 29.9 g/dL (31.5-36.5); Mean Corpuscular Volume 90 fL (80-100); Mean Platelet Volume 9.2 fL (9.1-12.4); NEUTROPHILS ABSOLUTE AUTO 8.68 K/mm3 (1.96-9.15); NEUTROPHILS PERCENT AUTO 80 % (41-73); Platelet Count 213 K/mm3 (150-400); RDW Coefficient Variation 15.2 % (11.7-14.2); Red Blood Cell Count 3.93 M/mm3 (4.30-5.90); White Blood Cell Count 10.92 K/mm3 (4.00-11.30)
[2020-11-27 01:35] LABS: Anion Gap 4 mmol/L (6-16); Blood Urea Nitrogen 31 mg/dL (8-24); Bun/Creatinine Ratio 29.2 (12.0-20.0); CO2, Blood 35 mmol/L (21-32); Calcium, Blood 9.4 mg/dL (8.5-10.1); Chloride, Blood 99 mmol/L (98-108); Creatinine, Blood 1.06 mg/dL (0.60-1.20); Glomerular Filtration Rate >60 (60-); Glucose, Blood 97 mg/dL (70-99); Potassium, Blood 4.3 mmol/L (3.5-5.5); Sodium, Blood 138 mmol/L (136-145)
[2020-11-28 04:05] LABS: BASOPHILS ABSOLUTE AUTO 0.01 K/mm3 (0.00-0.23); BASOPHILS PERCENT AUTO 0 % (0-2); EOSINOPHILS ABSOLUTE AUTO 0.01 K/mm3 (0.00-0.68); EOSINOPHILS PERCENT AUTO 0 % (0-6); Hematocrit 34.3 % (37.0-53.0); Hemoglobin 10.3 g/dL (13.5-17.5); IMMATURE GRAN ABSOLUTE AUTO 0.08 K/mm3 (0.00-0.10); IMMATURE GRAN PERCENT AUTO 1 % (0-1); LYMPHOCYTES ABSOLUTE AUTO 1.22 K/mm3 (0.84-5.20); LYMPHOCYTES PERCENT AUTO 15 % (21-46); MONOCYTES PERCENT AUTO 10 % (4-13); Mean Corpuscular HGB 27.1 pg (26.0-34.0); Mean Corpuscular Volume 90 fL (80-100); Mean Platelet Volume 9.8 fL (9.1-12.4); NEUTROPHILS ABSOLUTE AUTO 6.16 K/mm3 (1.96-9.15); NEUTROPHILS PERCENT AUTO 74 % (41-73); Platelet Count 203 K/mm3 (150-400); RDW Coefficient Variation 15.4 % (11.7-14.2); RDW Standard Deviation 50.4 fL (35.1-46.3); White Blood Cell Count 8.28 K/mm3 (4.00-11.30)
[2020-11-28 04:47] LABS: Anion Gap 7 mmol/L (6-16); Blood Urea Nitrogen 30 mg/dL (8-24); Bun/Creatinine Ratio 31.8 (12.0-20.0); CHOL/HDL RATIO 1.6; CO2, Blood 35 mmol/L (21-32); Calcium, Blood 9.1 mg/dL (8.5-10.1); Chloride, Blood 98 mmol/L (98-108); Cholesterol 131 mg/dL (50-200); Creatinine, Blood 0.94 mg/dL (0.60-1.20); Glomerular Filtration Rate >60 (60-); Glucose, Blood 72 mg/dL (70-99); HDL Cholesterol 82 mg/dL (>39); LDL/HDL RATIO 0.4; Low Density Lipoprotein Chol 35 mg/dL (0-110); Sodium, Blood 140 mmol/L (136-145); Triglycerides 71 mg/dL (30-160); Very Low Density Lipoprot Chol 14 mg/dL (6-32)
[2020-11-28 20:07] LABS: ADENOVIRUS F 40/41 Not Detected (Not Detected); ASTROVIRUS Not Detected (Not Detected); C DIFFICILE TOXIN A/B Detected (Not Detected); CRYPTOSPORIDIUM Not Detected (Not Detected); CYCLOSPORA CAYETANENSIS Not Detected (Not Detected); ENTAMOEBA HISTOLYTICA Not Detected (Not Detected); ENTEROAGGREGATIVE E COLI Not Detected (Not Detected); ENTEROPATHOGENIC E COLI Not Detected (Not Detected); ENTEROTOXIGENIC E COLI Not Detected (Not Detected); GIARDIA LAMBLIA Not Detected (Not Detected); NOROVIRUS GI/GII Not Detected (Not Detected); PLESIOMONAS SHIGELLOIDES Not Detected (Not Detected); ROTAVIRUS A Not Detected (Not Detected); SALMONELLA Not Detected (Not Detected); SAPOVIRUS Not Detected (Not Detected); SHIGA-TOXIN-PRODUCING E COLI Not Detected (Not Detected); SHIGELLA/ENTEROINVASIVE E COLI Not Detected (Not Detected); VIBRIO Not Detected (Not Detected); VIBRIO CHOLERAE Not Detected (Not Detected); YERSINIA ENTEROCOLITICA Not Detected (Not Detected)
[2020-11-29 05:31] LABS: BASOPHILS ABSOLUTE AUTO 0.03 K/mm3 (0.00-0.23); BASOPHILS PERCENT AUTO 0 % (0-2); EOSINOPHILS ABSOLUTE AUTO 0.04 K/mm3 (0.00-0.68); EOSINOPHILS PERCENT AUTO 1 % (0-6); Hemoglobin 11.5 g/dL (13.5-17.5); IMMATURE GRAN ABSOLUTE AUTO 0.09 K/mm3 (0.00-0.10); IMMATURE GRAN PERCENT AUTO 1 % (0-1); LYMPHOCYTES ABSOLUTE AUTO 1.35 K/mm3 (0.84-5.20); LYMPHOCYTES PERCENT AUTO 17 % (21-46); MONOCYTES ABSOLUTE AUTO 0.64 K/mm3 (0.16-1.47); MONOCYTES PERCENT AUTO 8 % (4-13); Mean Corpuscular HGB 26.4 pg (26.0-34.0); Mean Corpuscular HGB Conc 29.5 g/dL (31.5-36.5); Mean Corpuscular Volume 90 fL (80-100); Mean Platelet Volume 9.2 fL (9.1-12.4); NEUTROPHILS ABSOLUTE AUTO 5.93 K/mm3 (1.96-9.15); NEUTROPHILS PERCENT AUTO 73 % (41-73); Platelet Count 232 K/mm3 (150-400); RDW Coefficient Variation 15.3 % (11.7-14.2); RDW Standard Deviation 49.3 fL (35.1-46.3); Red Blood Cell Count 4.35 M/mm3 (4.30-5.90); White Blood Cell Count 8.08 K/mm3 (4.00-11.30)
[2020-11-29 06:09] LABS: Anion Gap 3 mmol/L (6-16); Blood Urea Nitrogen 29 mg/dL (8-24); Bun/Creatinine Ratio 31.4 (12.0-20.0); CO2, Blood 38 mmol/L (21-32); Calcium, Blood 9.2 mg/dL (8.5-10.1); Chloride, Blood 98 mmol/L (98-108); Creatinine, Blood 0.92 mg/dL (0.60-1.20); Glomerular Filtration Rate >60 (60-); Glucose, Blood 97 mg/dL (70-99); Potassium, Blood 3.3 mmol/L (3.5-5.5); Sodium, Blood 139 mmol/L (136-145)
[2020-11-30 05:27] LABS: Albumin, Blood 2.9 g/dL (3.4-5.0); Anion Gap 3 mmol/L (6-16); Blood Urea Nitrogen 32 mg/dL (8-24); Bun/Creatinine Ratio 33.5 (12.0-20.0); CO2, Blood 37 mmol/L (21-32); Calcium, Blood 8.9 mg/dL (8.5-10.1); Chloride, Blood 98 mmol/L (98-108); Creatinine, Blood 0.96 mg/dL (0.60-1.20); Glomerular Filtration Rate >60 (60-); Glucose, Blood 82 mg/dL (70-99); Phosphorus, Blood 2.1 mg/dL (2.5-4.9); Potassium, Blood 3.5 mmol/L (3.5-5.5); Sodium, Blood 138 mmol/L (136-145)
[2020-11-30] MEDS ORDERED: ATOR40TA PO (12:05)
[2020-11-30] MEDS ORDERED: IPRAT-ALBUT 0.5-3 ML INH (12:05)
[2020-11-30] MEDS ORDERED: ALDACTONE25 MG PO (12:06)
[2020-11-30] MEDS ORDERED: ENTRESTO 24 MG1 EAC3 PO (12:06)
== END 2020-11-30 13:28 | disposition home health service (06) | DRG 280 ==
LOC: ER 16:42 → PCU 16:43
PROVIDERS: Family Medicine; Internal Medicine; Nurse Practitioner Acute Care; Physician Assistant; ADMIT Internal Medicine
DX: I13.0 Hypertensive heart and chronic kidney disease with heart failure and stage 1 through stage 4 chronic kidney disease, or unspecified chronic kidney disease (principal); I21.A1 Myocardial infarction type 2; I50.43 Acute on chronic combined systolic (congestive) and diastolic (congestive) heart failure; E44.0 Moderate protein-calorie malnutrition; Z20.828 Contact with and (suspected) exposure to other viral communicable diseases; I25.10 Atherosclerotic heart disease of native coronary artery without angina pectoris; I12.9 Hypertensive chronic kidney disease with stage 1 through stage 4 chronic kidney disease, or unspecified chronic kidney disease; Z95.5 Presence of coronary angioplasty implant and graft; J44.9 Chronic obstructive pulmonary disease, unspecified; Z87.891 Personal history of nicotine dependence; Z79.82 Long term (current) use of aspirin; N18.30 Chronic kidney disease, stage 3 unspecified; I27.20 Pulmonary hypertension, unspecified; E78.5 Hyperlipidemia, unspecified; E03.9 Hypothyroidism, unspecified; Z66 Do not resuscitate; Z99.2 Dependence on renal dialysis; I07.1 Rheumatic tricuspid insufficiency; E87.6 Hypokalemia; T50.2X5A Adverse effect of carbonic-anhydrase inhibitors, benzothiadiazides and other diuretics, initial encounter; Y92.230 Patient room in hospital as the place of occurrence of the external cause; G47.00 Insomnia, unspecified; N40.0 Benign prostatic hyperplasia without lower urinary tract symptoms; I25.5 Ischemic cardiomyopathy; Z23 Encounter for immunization; K21.9 Gastro-esophageal reflux disease without esophagitis
CPT/HCPCS: 0097U; 0241U; 36415; 71045; 80048; 80053; 80061; 80069; 81001; 83735; 83880; 84100; 84443; 84484; 85025; 85610; 87324; 93005; 93010; 93306; 94640; 94664; 94667; 94760; 94762; 96372; 96374; 96376; 97110; 97116; 97161; 97166; 97530; 98960; 99285-25; A9270; G0008; G0378; J1644; J1940; J3010; J3480; J7050; Q2038

== ENCOUNTER 2020-12-04 09:24 | Inpatient (IN) | payer OTHER, MEDICARE ==
[~2020-12-04] VITALS: Ht 177.8 cm; Wt 75.0 kg
[~2020-12-04 09:24] MED LIST changes: +ALDACTONE25 MG PO; +Aspir 8181 MG PO; +CENTRUM SILVER1 EAC2 PO; +ENTRESTO 24 MG1 EAC3 PO; +FAMO20 PO; +IPRAT-ALBUT 0.5-3 ML INH; +LEVSOD100 PO; +TAMSULOSIN HCL0.4 M1 PO
[2020-12-04 10:13] LABS: BASOPHILS ABSOLUTE AUTO 0.02 K/mm3 (0.00-0.23); BASOPHILS PERCENT AUTO 0 % (0-2); EOSINOPHILS ABSOLUTE AUTO 0.01 K/mm3 (0.00-0.68); EOSINOPHILS PERCENT AUTO 0 % (0-6); Hematocrit 34.9 % (37.0-53.0); Hemoglobin 10.3 g/dL (13.5-17.5); IMMATURE GRAN ABSOLUTE AUTO 0.06 K/mm3 (0.00-0.10); IMMATURE GRAN PERCENT AUTO 1 % (0-1); LYMPHOCYTES ABSOLUTE AUTO 1.22 K/mm3 (0.84-5.20); LYMPHOCYTES PERCENT AUTO 13 % (21-46); MONOCYTES ABSOLUTE AUTO 0.81 K/mm3 (0.16-1.47); MONOCYTES PERCENT AUTO 9 % (4-13); Mean Corpuscular HGB 27.6 pg (26.0-34.0); Mean Corpuscular HGB Conc 29.5 g/dL (31.5-36.5); Mean Corpuscular Volume 94 fL (80-100); Mean Platelet Volume 9.4 fL (9.1-12.4); NEUTROPHILS ABSOLUTE AUTO 7.02 K/mm3 (1.96-9.15); NEUTROPHILS PERCENT AUTO 77 % (41-73); Platelet Count 174 K/mm3 (150-400); RDW Coefficient Variation 15.8 % (11.7-14.2); RDW Standard Deviation 52.9 fL (35.1-46.3); Red Blood Cell Count 3.73 M/mm3 (4.30-5.90); White Blood Cell Count 9.14 K/mm3 (4.00-11.30)
[2020-12-04 10:31] LABS: Alanine Aminotransfer (ALT/SGP 23 U/L (12-78); Albumin, Blood 3.2 g/dL (3.4-5.0); Albumin/Globulin Ratio 0.9 (0.8-1.8); Alk Phos 79 U/L (50-136); Anion Gap 4 mmol/L (6-16); Aspartate Aminotrans (AST/SGOT 31 U/L (12-37); Bilirubin, Total 1.7 mg/dL (0.1-1.0); Blood Urea Nitrogen 25 mg/dL (8-24); Bun/Creatinine Ratio 31.4 (12.0-20.0); CO2, Blood 38 mmol/L (21-32); Calcium, Blood 9.8 mg/dL (8.5-10.1); Chloride, Blood 96 mmol/L (98-108); Globulin, Blood 3.4 g/dL (2.2-4.0); Glomerular Filtration Rate >60 (60-); Glucose, Blood 103 mg/dL (70-99); Potassium, Blood 4.2 mmol/L (3.5-5.5); Sodium, Blood 138 mmol/L (136-145); Total Protein, Blood 6.6 g/dL (6.4-8.2); Troponin I 0.106 ng/mL (0.000-0.040)
[2020-12-04] MEDS ORDERED: CARV3.125 PO (11:49)
--- NOTE | 2020-12-04 18:27 | NUR ---
PT ADDMITTED FROM ER LATE THIS AFTERNOON. CHF EXAC, PT ON BIPAP ON ARRIVAL TO PCU RM 1. PT ASSESSED AND RESTING QUIETLY, RT AT BEDSIDE TO ADJUST BIPAP. SEE ADMIT ASSESSMENT, VS STABLE, SPO2 99% ON 40% FIO2. REDNESS AND SKIN IRRITATION PHOTOGRAPHED AND DOCUMENTED. PT'S DTR ZAKI CAME TO VISIT PT AND WAS TEARFUL ABOUT LOSING PT'S IN THE LAST YEAR AND STATED THAT THE PT HAS HAD RAPIDLY DECLINING HEALTH SINCE THEN. 1620: PT IS ALERT AND PULLING OFF HIS BIPAP. RN REMOVED BIPAP MASK AND ATTEMPTED TO PLACE PT ON SUPPLIMENTAL 02 VIA NC. PT STATES "DON'T, I DON'T WANT IT. I JUST WANT TO ." RN CONVINCED PT TO LEAVE SPO2 MONITOR ON. 1635: PT'S DTR JORGE (CATALINA ON FILE) CALLED ASKING FOR AN UPDATE ON PT'S CONDITION. THIS RN INFORMED HER OF WHAT THE PT HAD STATED ABOUT WANTING TO . JORGE REQUESTED TO SPEAK WITH HIM, PT DECLINED TO TALK ON THE PHONE WITH HER AT THIS TIME. REASSURED PT'S DTR THAT AT THIS TIME VS ARE STABLE AND A CARE CONFERENCE CAN BE HELD TOMORROW. IF THERE ARE ANY CHANGES OVERNIGHT, THE RN WILL NOTIFIY THE FAMILY. 1847: PT AGREES TO HAVE 3L 02 VIA NC PER HIS NORMAL HOME REGIMEN. WILL GIVE REPORT TO ONCOMING RN.
[2020-12-05 04:04] LABS: Hematocrit 31.8 % (37.0-53.0); Hemoglobin 9.3 g/dL (13.5-17.5); Mean Corpuscular HGB 26.7 pg (26.0-34.0); Mean Corpuscular HGB Conc 29.2 g/dL (31.5-36.5); Mean Corpuscular Volume 91 fL (80-100); Mean Platelet Volume 9.4 fL (9.1-12.4); Platelet Count 166 K/mm3 (150-400); RDW Coefficient Variation 15.9 % (11.7-14.2); RDW Standard Deviation 51.5 fL (35.1-46.3); Red Blood Cell Count 3.48 M/mm3 (4.30-5.90); White Blood Cell Count 6.72 K/mm3 (4.00-11.30)
[2020-12-05 04:25] LABS: Alanine Aminotransfer (ALT/SGP 19 U/L (12-78); Albumin, Blood 2.8 g/dL (3.4-5.0); Alk Phos 68 U/L (50-136); Anion Gap 3 mmol/L (6-16); Aspartate Aminotrans (AST/SGOT 23 U/L (12-37); Bilirubin, Total 1.7 mg/dL (0.1-1.0); Blood Urea Nitrogen 21 mg/dL (8-24); Bun/Creatinine Ratio 25.5 (12.0-20.0); CO2, Blood 41 mmol/L (21-32); Calcium, Blood 9.4 mg/dL (8.5-10.1); Chloride, Blood 96 mmol/L (98-108); Creatinine, Blood 0.82 mg/dL (0.60-1.20); Globulin, Blood 2.8 g/dL (2.2-4.0); Glomerular Filtration Rate >60 (60-); Glucose, Blood 79 mg/dL (70-99); Magnesium, Blood 2.1 mg/dL (1.6-2.4); Potassium, Blood 3.3 mmol/L (3.5-5.5); Sodium, Blood 140 mmol/L (136-145); Total Protein, Blood 5.6 g/dL (6.4-8.2)
--- NOTE | 2020-12-05 05:49 | NUR ---
SHIFT SUMMARY: VSS. AFEB. MAINTAINING 02 SATS >95% ON 3L VIA NC. REFUSED BIPAP FOR ENTIRE NIGHT. WILL CONT TO ENCOURAGE BIPAP THIS AM. F/C PATENT AND DRAINING CLEAR YELLOW URINE. BLE W/+3 EDEMA FROM TOES TO BELOW KNEES. FINE CRACKLES AUSCULTATED TO B LUNGS, BASES DIM. OCCASIONAL WET SOUNDING COUGH PRODUCING SMALL AMTS OF WHITE SPUTUM. PT SELF SUCTIONS SPUTUM W/ YANKAUER. DENIES SOB. RESPS EVEN, NON-LABORED APPEARING. AAOX3. REQUESTS REPOSITIONING FREQUENTLY FOR COMFORT. TELE SHOWING PACED HEART RHYTHM W/ PVC'S. WILL CONT TO MONITOR PT.
--- NOTE | 2020-12-05 08:00 | NUR ---
PT PLEASANT COOP A/O X3 TALKATIVE. 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 DENIES PAIN, EXCEPT SOME WHEN COUGH. HR REG, NO MURMER NOTED. TELE LUCW. PER TELE VENT PACED AT 95 WITH PVC'S. LUNGS CLIGHTLY COARSE T/O. DIM. ON 3L O2 BASELINE PER PT. RESP EASY, UNLABORED. BT X4 LAST BM YEST PER PT. NORMAL. VOIDS DALE CATH. DRANING YELLOW FLUID.. 1 SMALL CLOT NOTED IN HOSE. PT IS 2 ASST TO RECLINER CHAIR. MODERATE TO HEAVY ASST. BED IN LOW POSITION, CALL LITE IN REACH, CALLS APPROP
--- NOTE | 2020-12-05 09:54 | NUR ---
Pt resting in bed upon arrival. Pt has disconnected his puls oxymeter and states "I want this off" pointing to his IV. Pt answers orientation questions appropriately but appears confused. Pt reports discomfort in his chest and SOB. Discussed plan of care with Pt and he appears to calm. Spoke with Bedside RN José Miguel and discussed case. Palliative Care will F/U when family is visiting.
--- NOTE | 2020-12-05 10:00 | NUR ---
SPOKE TO DR PATINO RE BLE SWELLING. NOTED I DO NOT SEE LASERICH ON PT EMAR. . SHE TO REVIEW
--- NOTE | 2020-12-05 17:24 | NUR ---
PT PLEASANT TODAY. GOT TO CHAIR 2 ASST. DID WELL. NOW PT OT HAS WORKED WITH HIM. COULD MOVE TO 1 ASST FWW. NO NEW CONCERNS NOTED TODAY. LASIX ORDERED AND GIVEN TODAY. PT UP IN CHAIR GOOD PART OF AFTERNOON. CALL LITE IN REACH, CALLS APPROP
--- NOTE | 2020-12-05 20:35 | NUR ---
PATIENT A/OX3. ANGRY, STATES "WHY DO YOU HAVE TO DO ALL THIS STUFF!" ENCOURAGED PATIENT THAT WE CAN COMPLETE MULTIPLE TASKS AND THEN PATIENT CAN SLEEP, THEN HE WAS AGREEABLE TO CARE. DENIES PAIN. SPO2 AT 100% ON 2.5L O2 VIA NC, TURNED O2 DOWN TO 2L. PACED WITH PVCS IN THE 80'S PER TELETECH. DENIES CHEST PAIN. ALLEVYN DRESSING IN PLACE TO MID UPPER BACK AND COCCYX/BUTTOCKS. REPOSITIONED HIM. DISCUSSED POC FOR SHIFT AND CARE ROUNDING, PATIENT VERBALIZED UNDERSTANDING. AGREEABLE TO WEAR BIPAP AT THIS TIME FOR SLEEP. DID NOT WANT ASHA HOSE REMOVED. CALL LIGHT IN REACH. BED ALARM ON.
--- NOTE | 2020-12-05 20:37 | NUR ---
IV IS IN PATIENT'S RIGHT HAND, NOT LEFT
[2020-12-06 04:16] LABS: BASOPHILS ABSOLUTE AUTO 0.03 K/mm3 (0.00-0.23); BASOPHILS PERCENT AUTO 0 % (0-2); EOSINOPHILS ABSOLUTE AUTO 0.06 K/mm3 (0.00-0.68); EOSINOPHILS PERCENT AUTO 1 % (0-6); Hematocrit 34.3 % (37.0-53.0); Hemoglobin 10.4 g/dL (13.5-17.5); IMMATURE GRAN ABSOLUTE AUTO 0.06 K/mm3 (0.00-0.10); IMMATURE GRAN PERCENT AUTO 1 % (0-1); LYMPHOCYTES PERCENT AUTO 20 % (21-46); MONOCYTES ABSOLUTE AUTO 0.59 K/mm3 (0.16-1.47); MONOCYTES PERCENT AUTO 8 % (4-13); Mean Corpuscular HGB 27.5 pg (26.0-34.0); Mean Corpuscular HGB Conc 30.3 g/dL (31.5-36.5); Mean Corpuscular Volume 91 fL (80-100); Mean Platelet Volume 9.3 fL (9.1-12.4); NEUTROPHILS PERCENT AUTO 70 % (41-73); Platelet Count 209 K/mm3 (150-400); RDW Coefficient Variation 16.5 % (11.7-14.2); RDW Standard Deviation 53.5 fL (35.1-46.3); Red Blood Cell Count 3.78 M/mm3 (4.30-5.90); White Blood Cell Count 7.04 K/mm3 (4.00-11.30)
[2020-12-06 04:30] LABS: Anion Gap 2 mmol/L (6-16); Blood Urea Nitrogen 23 mg/dL (8-24); Bun/Creatinine Ratio 25.6 (12.0-20.0); CO2, Blood 41 mmol/L (21-32); Calcium, Blood 9.3 mg/dL (8.5-10.1); Chloride, Blood 96 mmol/L (98-108); Glomerular Filtration Rate >60 (60-); Glucose, Blood 126 mg/dL (70-99); Phosphorus, Blood 1.3 mg/dL (2.5-4.9); Potassium, Blood 3.5 mmol/L (3.5-5.5); Sodium, Blood 139 mmol/L (136-145)
--- NOTE | 2020-12-06 06:17 | NUR ---
SHIFT SUMMARY: PATIENT A/OX3. WAS ANGRY AT THE BEGINNING OF THE SHIFT BUT AFTER SLEEPING FOR FEW HOURS HAS BECOME MORE PLEASANT AND COOPERATIVE WITH CARE. REPORTED PAIN IN ANKLES THAT WAS RELIEVED WITH ICE PACKS, DENIED NEED FOR MEDICATION. NO CHANGES ON TELE. WEANED DOWN TO 1L O2 VIA NC. TOLERATED BIPAP FOR 20 MINUTES AT BEGINNING OF SHIFT BUT THEN REFUSED FOR THE REST OF IT. UP TO CHAIR FOR SEVERAL HOURS WITH SBA. UP TO BSC BUT WAS UNABLE TO HAVE A BM, STATES HE FEELS CONSTIPATED. DALE DRAINING YELLOW URINE. ALLEVYN DRESSINGS TO COCCYX AND BACK. TURNED/REPOSITIONED Q2H. WILL CONTINUE TO MONITOR AND REPORT TO ONCOMING RN.
--- NOTE | 2020-12-06 07:28 | NUR ---
ASSUMED CARE: PT SITTING UPRIGHT IN BED, TALKING TO STAFF. O2 VIA NC IN PLACE, 1L. TELE SHOWS PACED WITH PVCS AND BBB, RATE OF 99 AT THIS TIME. DENIES CP OR CONCERNS.
--- NOTE | 2020-12-06 08:05 | NUR ---
DR PATINO CAME TO SEE PT AND AWARE THAT PT HAS FELT CONSTIPATED. STATES WITH HX OF CDIFF, NO FURTHER MEDS TO BE GIVEN AT THIS TIME WITH CONCERN FOR CAUSING DIARRHEA. ADVISED TO GIVE PRUNE JUICE. DR AWARE OF PT'S ANKLE PAIN THAT IS RELIEVED WITH ICE. NO FURTHER NEEDS OR CONCERNS AT THIS TIME.
--- NOTE | 2020-12-06 18:47 | NUR ---
SHIFT SUMMARY: PT HAS BEEN TO CHAIR FROM BED MULTIPLE TIMES THIS SHIFT. NC IN PLACE AND PACED ON TELE. ICE TO LEFT ANKLE ON OCCASION. MEDICAL FLOOR STATUS WITH TELE. DALE REMOVED PER ORDERS. PT HAS HX OF BPH BUT HAS VOIDED. WILL PASS ON TO MONITOR FOR RETENTION. POSSIBLE DC HOME TOMORROW. NO FURTHER NEEDS OR CONCERNS
[2020-12-07 04:11] LABS: Albumin, Blood 2.8 g/dL (3.4-5.0); Anion Gap 4 mmol/L (6-16); Blood Urea Nitrogen 26 mg/dL (8-24); Bun/Creatinine Ratio 30.9 (12.0-20.0); CO2, Blood 37 mmol/L (21-32); Calcium, Blood 8.8 mg/dL (8.5-10.1); Chloride, Blood 94 mmol/L (98-108); Creatinine, Blood 0.84 mg/dL (0.60-1.20); Glomerular Filtration Rate >60 (60-); Glucose, Blood 90 mg/dL (70-99); Potassium, Blood 3.8 mmol/L (3.5-5.5); Sodium, Blood 135 mmol/L (136-145)
--- NOTE | 2020-12-07 06:37 | NUR ---
PT A&Ox3. MILD DYSPNEA OBSERVED WITH EXERTION. O2@3LPM VIA NC, SATS>92%. LUNG SOUNDS DECREASED WITH FAINT CRACKLES. TELE PACED IN 90s, SOME PACs. MILD EDEMA TO BLE. REPOSITIONED THROUGHOUT SHIFT. NO ACUTE CHANGES FROM BASELINE ASSESSMENT. WILL REPORT TO ONCOMING RN
--- NOTE | 2020-12-07 07:20 | NUR ---
ASSUMED CARE: PT SITTING IN BED WITH 2L O2 IN PLACE. ASKING TO BE UP IN CHAIR. PACED ON TELE AT THIS TIME. NO ACUTE NEEDS OR CONCERNS AT THIS TIME.
--- NOTE | 2020-12-07 09:05 | NUR ---
CALL TO DR PATINO WITH PT'S AM VITALS. WAS INSTRUCTED BY TO HOLD ALL BP MEDS AT THIS TIME AND RECHECK VITALS IN 1 HR AND CALL WITH RESULT. PT SITTING IN RECLINER AT THIS TIME. NO FURTHER NEEDS OR CONCERNS
--- NOTE | 2020-12-07 10:40 | NUR ---
CALL TO DR PATINO WITH UPDATED BLOOD PRESSURE. WAS INSTRUCTED TO NOW GIVE AM MEDS EXCEPT FOR LASIX. DR PLANS TO SEND PT HOME. DR PATINO AWARE THAT PT APPEARS WEAK. CALL TO PT'S FAMILY AND SPOKE WITH DAUGHTER IN [place] WHO SAID SHE WOULD BE HOME WITH HIM THE NEXT FEW DAYS AND AVAILABLE TO HELP HIM IF NEEDED. STATED SHE WOULD BE HAPPY TO BRING HIM HOME. DR PATINO AWARE. AWAITING DISCHARGE ORDERS.
--- NOTE | 2020-12-07 12:49 | NUR ---
CALL TO PT'S DAUGHTER IN [place] TO LET HER KNOW THAT DISCHARGE IS READY. LET HER KNOW THAT THIS RN WILL WAIT FOR HER TO GO OVER DC INSTRUCTIONS SO THAT A SECOND SET OF EARS IS PRESENT. SCREENER AND POT PRESS OPERATOR AWARE THAT PERMISSION HAS BEEN GIVEN SO THAT PT CAN BE SAFELY DC'D
--- NOTE | 2020-12-07 13:06 | NUR ---
DISCHARGE: PT'S IV REMOVED WNL. DC INSTRUCTIONS GIVEN TO PT AND DAUGHTER IN [place]. AWARE OF MONITORING BPS AND DAILY WEIGHTS AND TO KEEP A LOG FOR PCP APPOINTMENT. AWARE TO CALL PCP AND CARDIOLOGY TOMORROW TO SET UP APPOINTMENTS. DENIES QUESTIONS OR CONCERNS. ESCORTED OUT VIA WHEEL CHAIR BY HOSPITAL STAFF. NO FURTHER NEEDS OR CONCERNS.
== END 2020-12-07 13:05 | disposition home health service (06) | DRG 291 ==
LOC: ER 09:24 → ERHOLD 11:58 → PCU 11:58
PROVIDERS: Family Medicine; Nurse Practitioner Acute Care; Physician Assistant; ADMIT Internal Medicine
DX: I13.0 Hypertensive heart and chronic kidney disease with heart failure and stage 1 through stage 4 chronic kidney disease, or unspecified chronic kidney disease (principal); I50.43 Acute on chronic combined systolic (congestive) and diastolic (congestive) heart failure; J96.90 Respiratory failure, unspecified, unspecified whether with hypoxia or hypercapnia; J96.11 Chronic respiratory failure with hypoxia; E46 Unspecified protein-calorie malnutrition; J44.9 Chronic obstructive pulmonary disease, unspecified; E03.9 Hypothyroidism, unspecified; N40.0 Benign prostatic hyperplasia without lower urinary tract symptoms; K21.9 Gastro-esophageal reflux disease without esophagitis; I25.10 Atherosclerotic heart disease of native coronary artery without angina pectoris; I25.5 Ischemic cardiomyopathy; I27.29 Other secondary pulmonary hypertension; Z66 Do not resuscitate; Z51.5 Encounter for palliative care; N18.30 Chronic kidney disease, stage 3 unspecified; D63.1 Anemia in chronic kidney disease; Z68.28 Body mass index [BMI] 28.0-28.9, adult; Z95.1 Presence of aortocoronary bypass graft; Z99.81 Dependence on supplemental oxygen; Z95.0 Presence of cardiac pacemaker; Z79.82 Long term (current) use of aspirin; Z87.891 Personal history of nicotine dependence
CPT/HCPCS: 36415; 71045; 80053; 80069; 81000; 83735; 83880; 84484; 85025; 85027; 93005; 93010; 94640; 94660; 94760; 94762; 96374; 97116; 97161; 97166; 97535; 99285-25; A9270; J1650; J1940; J3480; J7050